=== PATIENT | male | born 1985 | race Caucasian/White ===

== ENCOUNTER 2021-01-25 19:07 | Emergency (ER) | payer SELFPAY ==
[~2021-01-25] VITALS: Ht 185.4 cm; Wt 104.5 kg
[2021-01-25 19:45] VITALS: BP 145/82
[2021-01-25] MEDS ORDERED: HYDROcodone/APAP 5/325MG 1 TAB TABLET PO ONE (20:45)
--- NOTE | 2021-01-25 21:26 | RAD ---
Exam: Right knee 2 views INDICATION: Pain after fall TECHNIQUE: Frontal and lateral views of the right knee Comparisons: None FINDINGS: Bone mineralization is normal. No acute or healed fractures. Soft tissues are unremarkable. Joint spa rohit are well-maintained. IMPRESSION: No acute osseous abnormality. Electronically signed by: Denys Knott MD (01/25/2021 9:23 PM) YO
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
[2021-01-25] MEDS ORDERED: HYDR-2761 PO (21:30)
[2021-01-25] MEDS ORDERED: IBUP-1007 PO (21:30)
== END 2021-01-25 21:35 | disposition home or self-care (01) ==
LOC: ER 19:07
DX: M25.561 Pain in right knee (principal)
CPT/HCPCS: 29505; 73560; 99283

== ENCOUNTER 2021-12-13 20:25 | Inpatient (IN) | payer SELFPAY ==
[~2021-12-13] VITALS: Ht 177.8 cm; Wt 96.3 kg
[~2021-12-13 20:25] MED LIST: HYDR-2761 PO; IBUP-1007 PO
[2021-12-13 20:30] VITALS: BP 163/95
[2021-12-13 21:00] VITALS: BP 168/96
[2021-12-13] MEDS ORDERED: MIDAZOLAM 100mg/100ml NS BAG 100 ML IV PRN (21:15)
[2021-12-13] MEDS ORDERED: IV NORMAL SALINE 500ML BAG 500 ML IV PRN (21:15)
[2021-12-13] MEDS ORDERED: POLYVINYL ALCOHOL 1.4% OPHTH SOLUTION 15ML BOTTLE. OU PRN (21:15)
[2021-12-13] MEDS ORDERED: ATROPINE 0.5 MG/5 ML DISP.SYRINGE. IV PRN (21:15)
[2021-12-13 22:00] VITALS: BP 156/89
[2021-12-13] MEDS: PROPOFOL 100 ML IV PRN (22:24)
[2021-12-13 23:00] VITALS: BP 137/79
[2021-12-14] VITALS (24 sets, daily range): BP systolic 118–164; BP diastolic 75–99
[2021-12-14] MEDS: PROPOFOL 100 ML IV PRN ×5 (01:08→20:19)
--- NOTE | 2021-12-14 06:08 | RAD ---
INDICATION: Reason: OG placement / Spl. Instructions: / History: COMPARISON: December 13, 2021 IMPRESSION: Abdomen: Single view obtained. Enteric tube is seen coursing below the diaphragm with the tip in the peripyloric region. Endotracheal tube is seen on this exam at mid thoracic trachea. Patchy opacities at the lung bases with blunting of the left costophrenic angle which could be secondary to edema or i nfiltrate with consolidation or small effusion at left lung base. Electronically signed by: Lawson Bararza MD (12/14/2021 6:05 AM) [id number]
[2021-12-14 07:38] LABS: BASE EXCESS ABG 1 mmol/L (-3-3); HCO3 ABG 25 mmol/L (21-28); PCO2 ABG 39 mmHg (35-46); PO2 ABG 92 mmHg (85-108); SAT O2 ABG 97 % (92-99)
[2021-12-14 09:15] LABS: BASO % 0 % (0-3); EOS % 0 % (0-3); HEMATOCRIT 42.1 % (39.0-53.0); HEMOGLOBIN 14.1 g/dL (13.0-17.5); LYMPH # 0.8 x10^3/uL (1.0-4.8); LYMPH % 7 % (24-48); MEAN CORPUSCULAR HEMOGLOBIN 29 pg (25-35); MEAN CORPUSCULAR HGB CONC 33 g/dL (31-37); MEAN CORPUSCULAR VOLUME 85 fL (79-100); MONO # 0.6 x10^3/uL (0.0-1.1); MONO % 5 % (0-9); NEUT % 88 % (31-73); PLATELET COUNT 216 x10^3/uL (140-400); RED BLOOD COUNT 4.93 x10^6/uL (4.30-5.70); RED CELL DISTRIBUTION WIDTH 13.7 % (11.5-14.5); WHITE BLOOD COUNT 11.4 x10^3/uL (4.0-11.0)
[2021-12-14] MEDS ORDERED: PIP/TAZO PER PHARMACY MC PRN (09:15)
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
[2021-12-14 09:41] LABS: ALBUMIN/GLOBULIN RATIO 0.8 (1.0-1.7); CALCIUM 7.9 mg/dL (8.5-10.1); CREATININE 1.2 mg/dL (0.7-1.3); GFR 68.1; MAGNESIUM 1.6 mg/dL (1.8-2.4); PHOSPHORUS 3.9 mg/dL (2.6-4.7); POTASSIUM 3.8 mmol/L (3.5-5.1)
[2021-12-14] MEDS ORDERED: MAGNESIUM SULFATE 4GM 100 ML IV ONE (10:00)
[2021-12-14] MEDS ORDERED: PIPERACILLIN/TAZOBACTAM 3.375 GM in IV NORMAL SALINE 50ML 50 ML IV ONE (10:00)
[2021-12-14 10:53] LABS: BARBITURATES NEG (NEG); BENZODIAZEPINES NEG (NEG); CANNABINOIDS NEG (NEG); COCAINE NEG (NEG); METHADONE NEG (NEG); OPIATES NEG (NEG); PHENCYCLIDINE NEG (NEG)
[2021-12-14 10:54] LABS: AMPHETAMINE/METHAMPHETAMINE POS (NEG)
[2021-12-14 10:59] LABS: BACTERIA,URINE 0 /HPF (0-FEW); RBC,URINE TNTC /HPF (0-2)
[2021-12-14] MEDS: ENOXAPARIN 40 MG/0.4 ML SYRINGE. SQ SCH (11:27)
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
[2021-12-14] MEDS: ACETAMINOPHEN 650 MG/20.3 ML SOLUTION. PEG PRN (17:04)
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
[2021-12-14] MEDS ORDERED: PIPERACILLIN/TAZOBACTAM 4.5 GM in IV NORMAL SALINE 100ML 100 ML IV SCH (18:00)
[2021-12-14] MEDS: PIPERACILLIN/TAZOBACTAM 4.5 GM in IV DEXTROSE 5% 100ML 100 ML IV SCH ×2 (18:15→23:37)
[2021-12-14] MEDS: FAMOTIDINE 20 MG/2 ML VIAL IVP SCH (20:52)
[2021-12-15] VITALS (24 sets, daily range): BP systolic 91–169; BP diastolic 58–98
[2021-12-15] MEDS: PROPOFOL 100 ML IV PRN ×5 (00:18→22:39)
[2021-12-15 05:23] LABS: HEMOGLOBIN 13.1 g/dL (13.0-17.5); RED BLOOD COUNT 4.53 x10^6/uL (4.30-5.70); RED CELL DISTRIBUTION WIDTH 13.3 % (11.5-14.5); WHITE BLOOD COUNT 10.2 x10^3/uL (4.0-11.0)
[2021-12-15 05:48] LABS: CALCIUM 8.4 mg/dL (8.5-10.1); CREATININE 0.8 mg/dL (0.7-1.3); GFR 108.8; MAGNESIUM 2.3 mg/dL (1.8-2.4); POTASSIUM 3.8 mmol/L (3.5-5.1)
[2021-12-15] MEDS: PIPERACILLIN/TAZOBACTAM 4.5 GM in IV DEXTROSE 5% 100ML 100 ML IV SCH ×4 (06:03→23:44)
[2021-12-15 07:54] LABS: BASE EXCESS ABG -2 mmol/L (-3-3); HCO3 ABG 22 mmol/L (21-28); PCO2 ABG 35 mmHg (35-46); PO2 ABG 129 mmHg (85-108); SAT O2 ABG 99 % (92-99)
[2021-12-15 07:55] LABS: FIO2 ABG 50% VENT
--- NOTE | 2021-12-15 09:08 | PDOC ---
PULMONARY PROGRESS NOTES DATE: 12/15/21 TIME: 09:05 Subjective Patient remains on assist control mode. Vitals Vital Signs Date Time Temp Pulse Resp B/P (MAP) Pulse Ox O2 Delivery O2 Flow Rate FiO2 12/15/21 08:14 100 Ventilator 12/15/21 08:00 97.9 87 22 150/92 (111) 97.9 Comments Remains intubated and sedated. Lungs: Clear Cardiovascular: S1 Abdomen: Soft Extremities: No Edema Skin: Warm Labs Laboratory Tests Test 12/14/21 07:36 12/14/21 08:55 12/14/21 10:34 12/15/21 04:45 O2 Saturation 97 % (92-99) Arterial Blood pH 7.42 (7.35-7.45) Arterial Blood pCO2 at Patient Temp 39 mmHg (35-46) Arterial Blood pO2 at Patient Temp 92 mmHg (85-108) Arterial Blood HCO3 25 mmol/L (21-28) Arterial Blood Base Excess 1 mmol/L (-3-3) FiO2 50% vent White Blood Count 11.4 x10^3/uL (4.0-11.0) 10.2 x10^3/uL (4.0-11.0) Red Blood Count 4.93 x10^6/uL (4.30-5.70) 4.53 x10^6/uL (4.30-5.70) Hemoglobin 14.1 g/dL (13.0-17.5) 13.1 g/dL (13.0-17.5) Hematocrit 42.1 % (39.0-53.0) 39.0 % (39.0-53.0) Mean Corpuscular Volume 85 fL (79-100) 86 fL (79-100) Mean Corpuscular Hemoglobin 29 pg (25-35) 29 pg (25-35) Mean Corpuscular Hemoglobin Concent 33 g/dL (31-37) 34 g/dL (31-37) Red Cell Distribution Width 13.7 % (11.5-14.5) 13.3 % (11.5-14.5) Platelet Count 216 x10^3/uL (140-400) 182 x10^3/uL (140-400) Neutrophils (%) (Auto) 88 % (31-73) Lymphocytes (%) (Auto) 7 % (24-48) Monocytes (%) (Auto) 5 % (0-9) Eosinophils (%) (Auto) 0 % (0-3) Basophils (%) (Auto) 0 % (0-3) Neutrophils # (Auto) 10.0 x10^3/uL (1.8-7.7) Lymphocytes # (Auto) 0.8 x10^3/uL (1.0-4.8) Monocytes # (Auto) 0.6 x10^3/uL (0.0-1.1) Eosinophils # (Auto) 0.0 x10^3/uL (0.0-0.7) Basophils # (Auto) 0.0 x10^3/uL (0.0-0.2) Sodium Level 146 mmol/L (136-145) 141 mmol/L (136-145) Potassium Level 3.8 mmol/L (3.5-5.1) 3.8 mmol/L (3.5-5.1) Chloride Level 111 mmol/L (98-107) 109 mmol/L (98-107) Carbon Dioxide Level 27 mmol/L (21-32) 23 mmol/L (21-32) Anion Gap 8 (6-14) 9 (6-14) Blood Urea Nitrogen 12 mg/dL (8-26) 12 mg/dL (8-26) Creatinine 1.2 mg/dL (0.7-1.3) 0.8 mg/dL (0.7-1.3) Estimated GFR (Cockcroft-Gault) 68.1 108.8 BUN/Creatinine Ratio 10 (6-20) Glucose Level 124 mg/dL (70-99) 100 mg/dL (70-99) Calcium Level 7.9 mg/dL (8.5-10.1) 8.4 mg/dL (8.5-10.1) Phosphorus Level 3.9 mg/dL (2.6-4.7) Magnesium Level 1.6 mg/dL (1.8-2.4) 2.3 mg/dL (1.8-2.4) Total Bilirubin 1.0 mg/dL (0.2-1.0) Aspartate Amino Transf (AST/SGOT) 18 U/L (15-37) Alanine Aminotransferase (ALT/SGPT) 29 U/L (16-63) Alkaline Phosphatase 57 U/L (46-116) Creatine Kinase 341 U/L (39-308) 139 U/L (39-308) Total Protein 7.0 g/dL (6.4-8.2) Albumin 3.0 g/dL (3.4-5.0) Albumin/Globulin Ratio 0.8 (1.0-1.7) Urine Collection Type Unknown Urine Color (Auto) Light orange Urine Turbidity Hazy Urine pH (Auto) 7.0 (<5.0-8.0) Urine Specific [place] 1.024 (1.000-1.030) Urine Protein (Auto) Negative mg/dL (Negative) Urine Glucose (Auto)(UA) Negative mg/dL (Negative) Urine Ketones (Auto) Negative mg/dL (Negative) Urine Blood (Auto) Large (Negative) Urine Nitrite Negative (Negative) Urine Bilirubin (Auto) Negative (Negative) Urine Urobilinogen (Auto) Normal mg/dL (Normal) Urine Leukocyte Esterase (Auto) Negative (Negative) Urine RBC Tntc /HPF (0-2) Urine WBC 1-4 /HPF (0-4) Urine Squamous Epithelial Cells Few /LPF Urine Bacteria 0 /HPF (0-FEW) Urine Mucus Mod /LPF Urine Opiates Screen Neg (NEG) Urine Methadone Screen Neg (NEG) Urine Barbiturates Neg (NEG) Urine Phencyclidine Screen Neg (NEG) Urine Amphetamine/Methamphetamine Pos (NEG) Urine Benzodiazepines Screen Neg (NEG) Urine Cocaine Screen Neg (NEG) Urine Cannabinoids Screen Neg (NEG) Urine Ethyl Alcohol Neg (NEG) Test 12/15/21 07:52 O2 Saturation 99 % (92-99) Arterial Blood pH 7.42 (7.35-7.45) Arterial Blood pCO2 at Patient Temp 35 mmHg (35-46) Arterial Blood pO2 at Patient Temp 129 mmHg (85-108) Arterial Blood HCO3 22 mmol/L (21-28) Arterial Blood Base Excess -2 mmol/L (-3-3) FiO2 50% vent Laboratory Tests Test 12/14/21 10:34 12/15/21 04:45 12/15/21 07:52 Urine Collection Type Unknown Urine Color (Auto) Light orange Urine Turbidity Hazy Urine pH (Auto) 7.0 (<5.0-8.0) Urine Specific [place] 1.024 (1.000-1.030) Urine Protein (Auto) Negative mg/dL (Negative) Urine Glucose (Auto)(UA) Negative mg/dL (Negative) Urine Ketones (Auto) Negative mg/dL (Negative) Urine Blood (Auto) Large (Negative) Urine Nitrite Negative (Negative) Urine Bilirubin (Auto) Negative (Negative) Urine Urobilinogen (Auto) Normal mg/dL (Normal) Urine Leukocyte Esterase (Auto) Negative (Negative) Urine RBC Tntc /HPF (0-2) Urine WBC 1-4 /HPF (0-4) Urine Squamous Epithelial Cells Few /LPF Urine Bacteria 0 /HPF (0-FEW) Urine Mucus Mod /LPF Urine Opiates Screen Neg (NEG) Urine Methadone Screen Neg (NEG) Urine Barbiturates Neg (NEG) Urine Phencyclidine Screen Neg (NEG) Urine Amphetamine/Methamphetamine Pos (NEG) Urine Benzodiazepines Screen Neg (NEG) Urine Cocaine Screen Neg (NEG) Urine Cannabinoids Screen Neg (NEG) Urine Ethyl Alcohol Neg (NEG) White Blood Count 10.2 x10^3/uL (4.0-11.0) Red Blood Count 4.53 x10^6/uL (4.30-5.70) Hemoglobin 13.1 g/dL (13.0-17.5) Hematocrit 39.0 % (39.0-53.0) Mean Corpuscular Volume 86 fL (79-100) Mean Corpuscular Hemoglobin 29 pg (25-35) Mean Corpuscular Hemoglobin Concent 34 g/dL (31-37) Red Cell Distribution Width 13.3 % (11.5-14.5) Platelet Count 182 x10^3/uL (140-400) Sodium Level 141 mmol/L (136-145) Potassium Level 3.8 mmol/L (3.5-5.1) Chloride Level 109 mmol/L (98-107) Carbon Dioxide Level 23 mmol/L (21-32) Anion Gap 9 (6-14) Blood Urea Nitrogen 12 mg/dL (8-26) Creatinine 0.8 mg/dL (0.7-1.3) Estimated GFR (Cockcroft-Gault) 108.8 Glucose Level 100 mg/dL (70-99) Calcium Level 8.4 mg/dL (8.5-10.1) Magnesium Level 2.3 mg/dL (1.8-2.4) Creatine Kinase 139 U/L (39-308) O2 Saturation 99 % (92-99) Arterial Blood pH 7.42 (7.35-7.45) Arterial Blood pCO2 at Patient Temp 35 mmHg (35-46) Arterial Blood pO2 at Patient Temp 129 mmHg (85-108) Arterial Blood HCO3 22 mmol/L (21-28) Arterial Blood Base Excess -2 mmol/L (-3-3) FiO2 50% vent Medications Active Scripts Medications Dose Route/Sig Max Daily Dose Days Date Category Hydrocodone-Apap 5-325 (Hydrocodone Bit/Acetaminophen) 1 Tab Tablet 1 Tab PO PRN Q6HRS PRN 01/25/21 Rx Ibuprofen 600 Mg Tablet 600 Mg PO PRN Q6HRS PRN 01/25/21 Rx Impression . 1. Acute hypoxic respiratory failure secondary to toxic encephalopathy and suspected suicidal attempt. Cannot exclude anoxic encephalopathy. 2. Acute toxic encephalopathy. Urine drug screen positive for meth. We will repeat the test.Cannot exclude anoxic encephalopathy. 3. Abnormal chest x-ray with right lung infiltrate along with fever. Suspect aspiration pneumonitis. Plan . RECOMMENDATIONS: 1. Discussed with RN and RT. We will continue with present assist control mode. I briefly discontinued propofol this morning. Patient did not respond to any commands. He became agitated and had restlessness. 2. Follow ABGs and make necessary adjustments. 3. exclude the possibility of anoxic encephalopathy. Neurology following. 4. Follow labs. 5. Follow chest x-ray. 6. Empiric antibiotic, Zosyn to cover for aspiration pneumonitis. 7. DVT and stress ulcer prophylaxis. 8. Chart reviewed, imaging studies reviewed. MILANA URBINA MD December 15, 2021 09:08
[2021-12-15] MEDS: ENOXAPARIN 40 MG/0.4 ML SYRINGE. SQ SCH (10:59)
[2021-12-15] MEDS: IV NORMAL SALINE 1000ML BAG 1,000 ML IV SCH ×2 (11:00→21:05)
--- NOTE | 2021-12-15 12:50 | PDOC ---
[facility] [facility] PROGRESS NOTE Date of Service DOS: DATE: 12/15/21 TIME: 12:49 Chief Complaint Chief Complaint Found down with probable overdose Respiratory failure requiring intubation Forehead hematoma Previous suicide attempt with baclofen and/or Flexeril, methamphetamine abuse. History of Present Illness History of Present Illness 12/15/2021 Patient seen and examined Discussed with RN (try to wake the patient up this morning but he did not do well he is back on propofol) Pupils are 2 mm minimally reactive Chart reviewed He is still on the vent AC/16/500/50 percent with 5 of PEEP Has mitts on for his safety Has IV Zosyn hanging He remains critically ill Vitals/I&O Vitals/I&O: Vital Signs Date Time Temp Pulse Resp B/P (MAP) Pulse Ox O2 Delivery O2 Flow Rate FiO2 12/15/21 12:33 100 Ventilator 12/15/21 12:00 97.4 92 20 136/78 (97) 97.4 I & O 12/14/21 12/14/21 12/15/21 15:00 23:00 07:00 Output Total 640 ml 470 ml 510 ml Balance -640 ml -470 ml -510 ml Physical Exam General: Other (Sedated with propofol) Heart: Regular rate Lungs: Clear Abdomen: Normal bowel sounds Extremities: No clubbing Skin: No rashes Labs Labs: Laboratory Tests Test 12/15/21 04:45 12/15/21 07:52 White Blood Count 10.2 x10^3/uL (4.0-11.0) Red Blood Count 4.53 x10^6/uL (4.30-5.70) Hemoglobin 13.1 g/dL (13.0-17.5) Hematocrit 39.0 % (39.0-53.0) Mean Corpuscular Volume 86 fL (79-100) Mean Corpuscular Hemoglobin 29 pg (25-35) Mean Corpuscular Hemoglobin Concent 34 g/dL (31-37) Red Cell Distribution Width 13.3 % (11.5-14.5) Platelet Count 182 x10^3/uL (140-400) Sodium Level 141 mmol/L (136-145) Potassium Level 3.8 mmol/L (3.5-5.1) Chloride Level 109 mmol/L (98-107) Carbon Dioxide Level 23 mmol/L (21-32) Anion Gap 9 (6-14) Blood Urea Nitrogen 12 mg/dL (8-26) Creatinine 0.8 mg/dL (0.7-1.3) Estimated GFR (Cockcroft-Gault) 108.8 Glucose Level 100 mg/dL (70-99) Calcium Level 8.4 mg/dL (8.5-10.1) Magnesium Level 2.3 mg/dL (1.8-2.4) Creatine Kinase 139 U/L (39-308) O2 Saturation 99 % (92-99) Arterial Blood pH 7.42 (7.35-7.45) Arterial Blood pCO2 at Patient Temp 35 mmHg (35-46) Arterial Blood pO2 at Patient Temp 129 mmHg (85-108) Arterial Blood HCO3 22 mmol/L (21-28) Arterial Blood Base Excess -2 mmol/L (-3-3) FiO2 50% vent Assessment and Plan Assessmemt and Plan Found down with probable overdose Respiratory failure requiring intubation Forehead hematoma Previous suicide attempt with baclofen and/or Flexeril, methamphetamine abuse. Plan ICU monitoring Vent weaning Trend labs Trend chest x-rays IV antibiotics DVT prophylaxis Full code Prognosis extremely guarded CC time 31 minutes Per pulmonary recommendations please see the following and we certainly agree and appreciate their input; 1. Acute hypoxic respiratory failure secondary to toxic encephalopathy and suspected suicidal attempt. Cannot exclude anoxic encephalopathy. 2. Acute toxic encephalopathy. Urine drug screen positive for meth. We will repeat the test.Cannot exclude anoxic encephalopathy. 3. Abnormal chest x-ray with right lung infiltrate along with fever. Suspect aspiration pneumonitis. Plan Plan . RECOMMENDATIONS: 1. Discussed with RN and RT. We will continue with present assist control mode. I briefly discontinued propofol this morning. Patient did not respond to any commands. He became agitated and had restlessness. 2. Follow ABGs and make necessary adjustments. 3. exclude the possibility of anoxic encephalopathy. Neurology following. 4. Follow labs. 5. Follow chest x-ray. 6. Empiric antibiotic, Zosyn to cover for aspiration pneumonitis. 7. DVT and stress ulcer prophylaxis. 8. Chart reviewed, imaging studies reviewed. Comment Review of Relevant I have reviewed the following items satish (where applicable) has been applied. Medications: Current Medications Medications (Trade) Dose Ordered Sig/Sumi Route PRN Reason Start Time Stop Time Status Last Admin Dose Admin Famotidine (Pepcid Vial) 20 mg QHS IVP 12/14/21 21:00 12/14/21 20:52 Piperacillin Sod/ Tazobactam Sod 4.5 gm/Dextrose 100 ml @ 200 mls/hr Q6HRS IV 12/14/21 18:00 12/15/21 11:00 Acetaminophen (Tylenol) 650 mg PRN Q6HRS PRN PEG MILD PAIN / TEMP > 100.3'F 12/14/21 17:00 12/14/21 17:04 Sodium Chloride 1,000 ml @ 125 mls/hr Q8H IV 12/15/21 11:00 12/15/21 11:00 Justifications for Admission Other Justification ROSA BEAN III DO December 15, 2021 12:50
--- NOTE | 2021-12-15 13:17 | PDOC ---
PROGRESS NOTES Date of Service DATE: 12/15/21 TIME: 13:14 Assessment Toxic encephalopathy, drug overdose, no evidence of ongoing seizure activity, intracranial process such as stroke or cerebral edema. Patient is gradually improving. Plan Continue current ICU supportive care Subjective None Objective Vital Signs Date Time Temp Pulse Resp B/P (MAP) Pulse Ox O2 Delivery O2 Flow Rate FiO2 12/15/21 12:33 100 Ventilator 12/15/21 12:00 97.4 92 20 136/78 (97) 97.4 Intake and Output 12/15/21 07:00 Output Total 1620 ml Balance -1620 ml Output Urine Total 1620 ml PHYSICAL EXAM Intubated and sedated, was very restless for the nurse when he stopped sedation earlier, Not cooperative with verbal commands PERRL. EOMI. CN: no focal findings. Muscle tone: normal. Muscle strength: Slight withdrawal to pain DTR: 1+ Plantar reflex: Silent Gait: not examined in bed. Sensory exam: no abnormal findings. Cerebellar: Not cooperative Review of Relevant I have reviewed the following items satish (where applicable) has been applied. Labs Laboratory Tests Test 12/14/21 07:36 12/14/21 08:55 12/14/21 10:34 12/15/21 04:45 O2 Saturation 97 % (92-99) Arterial Blood pH 7.42 (7.35-7.45) Arterial Blood pCO2 at Patient Temp 39 mmHg (35-46) Arterial Blood pO2 at Patient Temp 92 mmHg (85-108) Arterial Blood HCO3 25 mmol/L (21-28) Arterial Blood Base Excess 1 mmol/L (-3-3) FiO2 50% vent White Blood Count 11.4 x10^3/uL (4.0-11.0) 10.2 x10^3/uL (4.0-11.0) Red Blood Count 4.93 x10^6/uL (4.30-5.70) 4.53 x10^6/uL (4.30-5.70) Hemoglobin 14.1 g/dL (13.0-17.5) 13.1 g/dL (13.0-17.5) Hematocrit 42.1 % (39.0-53.0) 39.0 % (39.0-53.0) Mean Corpuscular Volume 85 fL (79-100) 86 fL (79-100) Mean Corpuscular Hemoglobin 29 pg (25-35) 29 pg (25-35) Mean Corpuscular Hemoglobin Concent 33 g/dL (31-37) 34 g/dL (31-37) Red Cell Distribution Width 13.7 % (11.5-14.5) 13.3 % (11.5-14.5) Platelet Count 216 x10^3/uL (140-400) 182 x10^3/uL (140-400) Neutrophils (%) (Auto) 88 % (31-73) Lymphocytes (%) (Auto) 7 % (24-48) Monocytes (%) (Auto) 5 % (0-9) Eosinophils (%) (Auto) 0 % (0-3) Basophils (%) (Auto) 0 % (0-3) Neutrophils # (Auto) 10.0 x10^3/uL (1.8-7.7) Lymphocytes # (Auto) 0.8 x10^3/uL (1.0-4.8) Monocytes # (Auto) 0.6 x10^3/uL (0.0-1.1) Eosinophils # (Auto) 0.0 x10^3/uL (0.0-0.7) Basophils # (Auto) 0.0 x10^3/uL (0.0-0.2) Sodium Level 146 mmol/L (136-145) 141 mmol/L (136-145) Potassium Level 3.8 mmol/L (3.5-5.1) 3.8 mmol/L (3.5-5.1) Chloride Level 111 mmol/L (98-107) 109 mmol/L (98-107) Carbon Dioxide Level 27 mmol/L (21-32) 23 mmol/L (21-32) Anion Gap 8 (6-14) 9 (6-14) Blood Urea Nitrogen 12 mg/dL (8-26) 12 mg/dL (8-26) Creatinine 1.2 mg/dL (0.7-1.3) 0.8 mg/dL (0.7-1.3) Estimated GFR (Cockcroft-Gault) 68.1 108.8 BUN/Creatinine Ratio 10 (6-20) Glucose Level 124 mg/dL (70-99) 100 mg/dL (70-99) Calcium Level 7.9 mg/dL (8.5-10.1) 8.4 mg/dL (8.5-10.1) Phosphorus Level 3.9 mg/dL (2.6-4.7) Magnesium Level 1.6 mg/dL (1.8-2.4) 2.3 mg/dL (1.8-2.4) Total Bilirubin 1.0 mg/dL (0.2-1.0) Aspartate Amino Transf (AST/SGOT) 18 U/L (15-37) Alanine Aminotransferase (ALT/SGPT) 29 U/L (16-63) Alkaline Phosphatase 57 U/L (46-116) Creatine Kinase 341 U/L (39-308) 139 U/L (39-308) Total Protein 7.0 g/dL (6.4-8.2) Albumin 3.0 g/dL (3.4-5.0) Albumin/Globulin Ratio 0.8 (1.0-1.7) Urine Collection Type Unknown Urine Color (Auto) Light orange Urine Turbidity Hazy Urine pH (Auto) 7.0 (<5.0-8.0) Urine Specific [place] 1.024 (1.000-1.030) Urine Protein (Auto) Negative mg/dL (Negative) Urine Glucose (Auto)(UA) Negative mg/dL (Negative) Urine Ketones (Auto) Negative mg/dL (Negative) Urine Blood (Auto) Large (Negative) Urine Nitrite Negative (Negative) Urine Bilirubin (Auto) Negative (Negative) Urine Urobilinogen (Auto) Normal mg/dL (Normal) Urine Leukocyte Esterase (Auto) Negative (Negative) Urine RBC Tntc /HPF (0-2) Urine WBC 1-4 /HPF (0-4) Urine Squamous Epithelial Cells Few /LPF Urine Bacteria 0 /HPF (0-FEW) Urine Mucus Mod /LPF Urine Opiates Screen Neg (NEG) Urine Methadone Screen Neg (NEG) Urine Barbiturates Neg (NEG) Urine Phencyclidine Screen Neg (NEG) Urine Amphetamine/Methamphetamine Pos (NEG) Urine Benzodiazepines Screen Neg (NEG) Urine Cocaine Screen Neg (NEG) Urine Cannabinoids Screen Neg (NEG) Urine Ethyl Alcohol Neg (NEG) Test 12/15/21 07:52 O2 Saturation 99 % (92-99) Arterial Blood pH 7.42 (7.35-7.45) Arterial Blood pCO2 at Patient Temp 35 mmHg (35-46) Arterial Blood pO2 at Patient Temp 129 mmHg (85-108) Arterial Blood HCO3 22 mmol/L (21-28) Arterial Blood Base Excess -2 mmol/L (-3-3) FiO2 50% vent Laboratory Tests Test 12/15/21 04:45 12/15/21 07:52 White Blood Count 10.2 x10^3/uL (4.0-11.0) Red Blood Count 4.53 x10^6/uL (4.30-5.70) Hemoglobin 13.1 g/dL (13.0-17.5) Hematocrit 39.0 % (39.0-53.0) Mean Corpuscular Volume 86 fL (79-100) Mean Corpuscular Hemoglobin 29 pg (25-35) Mean Corpuscular Hemoglobin Concent 34 g/dL (31-37) Red Cell Distribution Width 13.3 % (11.5-14.5) Platelet Count 182 x10^3/uL (140-400) Sodium Level 141 mmol/L (136-145) Potassium Level 3.8 mmol/L (3.5-5.1) Chloride Level 109 mmol/L (98-107) Carbon Dioxide Level 23 mmol/L (21-32) Anion Gap 9 (6-14) Blood Urea Nitrogen 12 mg/dL (8-26) Creatinine 0.8 mg/dL (0.7-1.3) Estimated GFR (Cockcroft-Gault) 108.8 Glucose Level 100 mg/dL (70-99) Calcium Level 8.4 mg/dL (8.5-10.1) Magnesium Level 2.3 mg/dL (1.8-2.4) Creatine Kinase 139 U/L (39-308) O2 Saturation 99 % (92-99) Arterial Blood pH 7.42 (7.35-7.45) Arterial Blood pCO2 at Patient Temp 35 mmHg (35-46) Arterial Blood pO2 at Patient Temp 129 mmHg (85-108) Arterial Blood HCO3 22 mmol/L (21-28) Arterial Blood Base Excess -2 mmol/L (-3-3) FiO2 50% vent Medications Current Medications Fentanyl Citrate 30 ml @ 2.5 mls/hr CONT PRN IV SEE PROTOCOL; Start 12/13/21 at 21:15 Midazolam HCl 100 ml @ 1 mls/hr CONT PRN IV SEE PROTOCOL; Start 12/13/21 at 21:15; Stop 12/15/21 at 11:13; Status DC Propofol 100 ml @ 2.901 mls/ hr CONT PRN IV PER PROTOCOL Last administered on 12/15/21at 09:46; Start 12/13/21 at 21:15 Glycerin/ Hypromellose/ Polyethylene (Artificial Tears) 1 drop PRN Q1HR PRN OU DRY EYE; Start 12/13/21 at 21:15 Dexmedetomidine HCl 400 mcg/ Sodium Chloride 100 ml @ 4.835 mls/ hr CONT PRN IV PER PROTOCOL; Start 12/13/21 at 21:15 Sodium Chloride 500 ml @ 500 mls/hr 1X PRN PRN IV SEE COMMENTS; Start 12/13/21 at 21:15 Atropine Sulfate (ATROPINE 0.5mg SYRINGE) 0.5 mg PRN Q5MIN PRN IV SEE COMMENTS; Start 12/13/21 at 21:15 Piperacillin Sod/ Tazobactam Sod (Zosyn Per Pharmacy) 1 each PRN DAILY PRN MC SEE COMMENTS; Start 12/14/21 at 09:15 Enoxaparin Sodium (Lovenox 40mg Syringe) 40 mg Q24H SQ Last administered on 12/15/21at 10:59; Start 12/14/21 at 11:00 Famotidine (Pepcid Vial) 20 mg QHS IVP Last administered on 12/14/21at 20:52; Start 12/14/21 at 21:00 Piperacillin Sod/ Tazobactam Sod 3.375 gm/Sodium Chloride 50 ml @ 100 mls/hr 1X ONCE IV Last administered on 12/14/21at 09:37; Start 12/14/21 at 10:00; Stop 12/14/21 at 10:29; Status DC Magnesium Sulfate 100 ml @ 25 mls/hr 1X ONCE IV Last administered on 12/14/21at 10:23; Start 12/14/21 at 10:00; Stop 12/14/21 at 13:59; Status DC Piperacillin Sod/ Tazobactam Sod 4.5 gm/Sodium Chloride 100 ml @ 200 mls/hr Q6HRS IV ; Start 12/14/21 at 18:00; Stop 12/14/21 at 10:22; Status DC Piperacillin Sod/ Tazobactam Sod 4.5 gm/Dextrose 100 ml @ 200 mls/hr Q6HRS IV Last administered on 12/15/21at 11:00; Start 12/14/21 at 18:00 Acetaminophen (Tylenol) 650 mg PRN Q6HRS PRN PEG MILD PAIN / TEMP > 100.3'F Last administered on 12/14/21at 17:04; Start 12/14/21 at 17:00 Sodium Chloride 1,000 ml @ 125 mls/hr Q8H IV Last administered on 12/15/21at 11:00; Start 12/15/21 at 11:00 Active Scripts Active Hydrocodone-Apap 5-325 (Hydrocodone Bit/Acetaminophen) 1 Tab Tablet 1 Tab PO PRN Q6HRS PRN Ibuprofen 600 Mg Tablet 600 Mg PO PRN Q6HRS PRN Vitals/I & O Vital Sign - Last 24 Hours 12/14/21 12/14/21 12/14/21 12/14/21 14:00 15:00 15:37 16:00 Temp 100.1 100.1 Pulse 109 112 101 Resp 20 20 22 B/P (MAP) 152/90 (110) 154/93 (113) 155/91 (112) Pulse Ox 100 100 100 100 O2 Delivery Ventilator Ventilator Ventilator Ventilator 12/14/21 12/14/21 12/14/21 12/14/21 16:00 17:00 17:19 18:00 Pulse 108 99 Resp 24 20 B/P (MAP) 164/96 (118) 134/91 (105) Pulse Ox 100 99 100 O2 Delivery Mechanical Ventilator Ventilator Ventilator Ventilator 12/14/21 12/14/21 12/14/21 12/14/21 19:00 19:55 20:00 20:00 Temp 99.4 99.4 Pulse 101 90 Resp 16 16 B/P (MAP) 133/83 (100) 140/86 (104) Pulse Ox 100 100 100 O2 Delivery Ventilator Ventilator Mechanical Ventilator Ventilator 12/14/21 12/14/21 12/14/21 12/14/21 21:00 22:00 23:00 23:28 Pulse 96 94 108 Resp 16 16 16 B/P (MAP) 138/78 (98) 146/89 (108) 141/90 (107) Pulse Ox 100 100 100 100 O2 Delivery Ventilator Ventilator Ventilator Ventilator 12/15/21 12/15/21 12/15/21 12/15/21 00:00 00:00 01:00 01:41 Temp 99.5 99.5 Pulse 92 93 Resp 16 16 B/P (MAP) 148/87 (107) 144/78 (100) Pulse Ox 100 100 100 O2 Delivery Mechanical Ventilator Ventilator Ventilator Ventilator 12/15/21 12/15/21 12/15/21 12/15/21 02:00 03:00 03:28 04:00 Temp 99.7 99.7 Pulse 90 104 103 Resp 16 16 16 B/P (MAP) 137/92 (107) 149/84 (105) 160/90 (113) Pulse Ox 100 100 100 100 O2 Delivery Ventilator Ventilator Ventilator Ventilator 12/15/21 12/15/21 12/15/21 12/15/21 04:00 05:00 05:32 06:00 Pulse 76 99 Resp 18 18 B/P (MAP) 147/83 (104) 156/88 (110) Pulse Ox 100 100 100 O2 Delivery Mechanical Ventilator Ventilator Ventilator Ventilator 12/15/21 12/15/21 12/15/21 12/15/21 07:00 07:47 07:58 08:00 Temp 97.9 97.9 Pulse 99 87 Resp 20 22 B/P (MAP) 140/92 (108) 150/92 (111) Pulse Ox 100 100 100 O2 Delivery Ventilator Ventilator Mechanical Ventilator Ventilator 12/15/21 12/15/21 12/15/21 12/15/21 08:14 09:00 10:00 10:52 Pulse 99 88 Resp 22 B/P (MAP) 131/78 (95) 147/78 (101) Pulse Ox 100 100 100 100 O2 Delivery Ventilator Ventilator Ventilator Ventilator 12/15/21 12/15/21 12/15/21 12/15/21 11:00 12:00 12:00 12:33 Temp 97.4 97.4 Pulse 90 92 Resp 20 20 B/P (MAP) 132/85 (101) 136/78 (97) Pulse Ox 100 100 100 O2 Delivery Ventilator Mechanical Ventilator Ventilator Ventilator Intake and Output 12/14/21 12/14/21 12/15/21 15:00 23:00 07:00 Output Total 640 ml 470 ml 510 ml Balance -640 ml -470 ml -510 ml Justicifation of Admission Dx: Justifications for Admission: Justification of Admission Dx: N/A DOMINICK TORRES MD December 15, 2021 13:17
[2021-12-15] MEDS: DEXMEDETOMIDINE 400 MCG in IV NORMAL SALINE 100ML 96 ML IV PRN ×2 (15:54→23:45)
[2021-12-15] MEDS: FAMOTIDINE 20 MG/2 ML VIAL IVP SCH (21:05)
[2021-12-16] VITALS (23 sets, daily range): BP systolic 88–133; BP diastolic 47–88
[2021-12-16] MEDS: PROPOFOL 100 ML IV PRN ×6 (03:58→23:31)
[2021-12-16] MEDS: IV NORMAL SALINE 1000ML BAG 1,000 ML IV SCH ×3 (05:31→20:50)
[2021-12-16] MEDS: PIPERACILLIN/TAZOBACTAM 4.5 GM in IV DEXTROSE 5% 100ML 100 ML IV SCH ×4 (05:31→23:31)
--- NOTE | 2021-12-16 08:28 | RAD ---
AP portable chest radiograph 12/16/2021 Clinical History: Aspiration pneumonia. Respiratory failure. An AP semi erect portable digital radiograph of the chest was obtained. Comparison study is dated 12/13/2021. The ET tube is unchanged in position. An NG tube has been placed. The tip of this tube is off this ra diograph in the region of the distal body/antrum of the stomach. The cardiac and mediastinal silhouet balbina are within normal limits in size and configuration. Increasing left lower lobe atelectasis and/or infiltrate is noted. Right lower lobe atelectasis and/or infiltrate has improved. No pneumothorax or pleural effusion is noted. The osseous structures are unchanged. Impression: 1. .Increasing left lower lobe atelectasis and/or infiltrate. 2. Improving right lower lobe atelectasis and/or infiltrate Electronically signed by: Won Peña MD (12/16/2021 8:26 AM) [id number]
[2021-12-16 08:33] LABS: BASE EXCESS ABG -3 mmol/L (-3-3); HCO3 ABG 21 mmol/L (21-28); PCO2 ABG 34 mmHg (35-46); PO2 ABG 167 mmHg (85-108); SAT O2 ABG 99 % (92-99)
--- NOTE | 2021-12-16 08:33 | PDOC ---
PROGRESS NOTES Date of Service DATE: 12/16/21 TIME: 08:32 Assessment Toxic encephalopathy, drug overdose, no evidence of ongoing seizure activity, intracranial process such as stroke or cerebral edema. Patient is gradually improving. Plan Continue current ICU supportive care Subjective None Objective Vital Signs Date Time Temp Pulse Resp B/P (MAP) Pulse Ox O2 Delivery O2 Flow Rate FiO2 12/16/21 08:13 100 Ventilator 12/16/21 07:00 98.6 83 19 100/59 98.6 Intake and Output 12/16/21 07:00 Intake Total 4059 ml Output Total 1740 ml Balance 2319 ml Intake IV Total 4059 ml Output Urine Total 1740 ml PHYSICAL EXAM Intubated and sedated, off sedation he remains agitated and not following commands PERRL. EOMI. CN: no focal findings. Muscle tone: normal. Muscle strength: Slight withdrawal to pain DTR: 1+ Plantar reflex: Silent Gait: not examined in bed. Sensory exam: no abnormal findings. Cerebellar: Not cooperative Review of Relevant I have reviewed the following items satish (where applicable) has been applied. Labs Laboratory Tests Test 12/14/21 08:55 12/14/21 10:34 12/15/21 04:45 12/15/21 07:52 White Blood Count 11.4 x10^3/uL (4.0-11.0) 10.2 x10^3/uL (4.0-11.0) Red Blood Count 4.93 x10^6/uL (4.30-5.70) 4.53 x10^6/uL (4.30-5.70) Hemoglobin 14.1 g/dL (13.0-17.5) 13.1 g/dL (13.0-17.5) Hematocrit 42.1 % (39.0-53.0) 39.0 % (39.0-53.0) Mean Corpuscular Volume 85 fL (79-100) 86 fL (79-100) Mean Corpuscular Hemoglobin 29 pg (25-35) 29 pg (25-35) Mean Corpuscular Hemoglobin Concent 33 g/dL (31-37) 34 g/dL (31-37) Red Cell Distribution Width 13.7 % (11.5-14.5) 13.3 % (11.5-14.5) Platelet Count 216 x10^3/uL (140-400) 182 x10^3/uL (140-400) Neutrophils (%) (Auto) 88 % (31-73) Lymphocytes (%) (Auto) 7 % (24-48) Monocytes (%) (Auto) 5 % (0-9) Eosinophils (%) (Auto) 0 % (0-3) Basophils (%) (Auto) 0 % (0-3) Neutrophils # (Auto) 10.0 x10^3/uL (1.8-7.7) Lymphocytes # (Auto) 0.8 x10^3/uL (1.0-4.8) Monocytes # (Auto) 0.6 x10^3/uL (0.0-1.1) Eosinophils # (Auto) 0.0 x10^3/uL (0.0-0.7) Basophils # (Auto) 0.0 x10^3/uL (0.0-0.2) Sodium Level 146 mmol/L (136-145) 141 mmol/L (136-145) Potassium Level 3.8 mmol/L (3.5-5.1) 3.8 mmol/L (3.5-5.1) Chloride Level 111 mmol/L (98-107) 109 mmol/L (98-107) Carbon Dioxide Level 27 mmol/L (21-32) 23 mmol/L (21-32) Anion Gap 8 (6-14) 9 (6-14) Blood Urea Nitrogen 12 mg/dL (8-26) 12 mg/dL (8-26) Creatinine 1.2 mg/dL (0.7-1.3) 0.8 mg/dL (0.7-1.3) Estimated GFR (Cockcroft-Gault) 68.1 108.8 BUN/Creatinine Ratio 10 (6-20) Glucose Level 124 mg/dL (70-99) 100 mg/dL (70-99) Calcium Level 7.9 mg/dL (8.5-10.1) 8.4 mg/dL (8.5-10.1) Phosphorus Level 3.9 mg/dL (2.6-4.7) Magnesium Level 1.6 mg/dL (1.8-2.4) 2.3 mg/dL (1.8-2.4) Total Bilirubin 1.0 mg/dL (0.2-1.0) Aspartate Amino Transf (AST/SGOT) 18 U/L (15-37) Alanine Aminotransferase (ALT/SGPT) 29 U/L (16-63) Alkaline Phosphatase 57 U/L (46-116) Creatine Kinase 341 U/L (39-308) 139 U/L (39-308) Total Protein 7.0 g/dL (6.4-8.2) Albumin 3.0 g/dL (3.4-5.0) Albumin/Globulin Ratio 0.8 (1.0-1.7) Urine Collection Type Unknown Urine Color (Auto) Light orange Urine Turbidity Hazy Urine pH (Auto) 7.0 (<5.0-8.0) Urine Specific [place] 1.024 (1.000-1.030) Urine Protein (Auto) Negative mg/dL (Negative) Urine Glucose (Auto)(UA) Negative mg/dL (Negative) Urine Ketones (Auto) Negative mg/dL (Negative) Urine Blood (Auto) Large (Negative) Urine Nitrite Negative (Negative) Urine Bilirubin (Auto) Negative (Negative) Urine Urobilinogen (Auto) Normal mg/dL (Normal) Urine Leukocyte Esterase (Auto) Negative (Negative) Urine RBC Tntc /HPF (0-2) Urine WBC 1-4 /HPF (0-4) Urine Squamous Epithelial Cells Few /LPF Urine Bacteria 0 /HPF (0-FEW) Urine Mucus Mod /LPF Urine Opiates Screen Neg (NEG) Urine Methadone Screen Neg (NEG) Urine Barbiturates Neg (NEG) Urine Phencyclidine Screen Neg (NEG) Urine Amphetamine/Methamphetamine Pos (NEG) Urine Benzodiazepines Screen Neg (NEG) Urine Cocaine Screen Neg (NEG) Urine Cannabinoids Screen Neg (NEG) Urine Ethyl Alcohol Neg (NEG) O2 Saturation 99 % (92-99) Arterial Blood pH 7.42 (7.35-7.45) Arterial Blood pCO2 at Patient Temp 35 mmHg (35-46) Arterial Blood pO2 at Patient Temp 129 mmHg (85-108) Arterial Blood HCO3 22 mmol/L (21-28) Arterial Blood Base Excess -2 mmol/L (-3-3) FiO2 50% vent Medications Current Medications Fentanyl Citrate 30 ml @ 2.5 mls/hr CONT PRN IV SEE PROTOCOL; Start 12/13/21 at 21:15 Midazolam HCl 100 ml @ 1 mls/hr CONT PRN IV SEE PROTOCOL; Start 12/13/21 at 21:15; Stop 12/15/21 at 11:13; Status DC Propofol 100 ml @ 2.901 mls/ hr CONT PRN IV PER PROTOCOL Last administered on 12/16/21at 07:52; Start 12/13/21 at 21:15 Glycerin/ Hypromellose/ Polyethylene (Artificial Tears) 1 drop PRN Q1HR PRN OU DRY EYE; Start 12/13/21 at 21:15 Dexmedetomidine HCl 400 mcg/ Sodium Chloride 100 ml @ 4.835 mls/ hr CONT PRN IV PER PROTOCOL Last administered on 12/15/21at 23:45; Start 12/13/21 at 21:15 Sodium Chloride 500 ml @ 500 mls/hr 1X PRN PRN IV SEE COMMENTS; Start 12/13/21 at 21:15 Atropine Sulfate (ATROPINE 0.5mg SYRINGE) 0.5 mg PRN Q5MIN PRN IV SEE COMMENTS; Start 12/13/21 at 21:15 Piperacillin Sod/ Tazobactam Sod (Zosyn Per Pharmacy) 1 each PRN DAILY PRN MC SEE COMMENTS; Start 12/14/21 at 09:15 Enoxaparin Sodium (Lovenox 40mg Syringe) 40 mg Q24H SQ Last administered on 12/15/21at 10:59; Start 12/14/21 at 11:00 Famotidine (Pepcid Vial) 20 mg QHS IVP Last administered on 12/15/21at 21:05; Start 12/14/21 at 21:00 Piperacillin Sod/ Tazobactam Sod 3.375 gm/Sodium Chloride 50 ml @ 100 mls/hr 1X ONCE IV Last administered on 12/14/21at 09:37; Start 12/14/21 at 10:00; Stop 12/14/21 at 10:29; Status DC Magnesium Sulfate 100 ml @ 25 mls/hr 1X ONCE IV Last administered on 12/14/21at 10:23; Start 12/14/21 at 10:00; Stop 12/14/21 at 13:59; Status DC Piperacillin Sod/ Tazobactam Sod 4.5 gm/Sodium Chloride 100 ml @ 200 mls/hr Q6HRS IV ; Start 12/14/21 at 18:00; Stop 12/14/21 at 10:22; Status DC Piperacillin Sod/ Tazobactam Sod 4.5 gm/Dextrose 100 ml @ 200 mls/hr Q6HRS IV Last administered on 12/16/21at 05:31; Start 12/14/21 at 18:00 Acetaminophen (Tylenol) 650 mg PRN Q6HRS PRN PEG MILD PAIN / TEMP > 100.3'F Last administered on 12/14/21at 17:04; Start 12/14/21 at 17:00 Sodium Chloride 1,000 ml @ 125 mls/hr Q8H IV Last administered on 12/16/21at 05:31; Start 12/15/21 at 11:00 Active Scripts Active Hydrocodone-Apap 5-325 (Hydrocodone Bit/Acetaminophen) 1 Tab Tablet 1 Tab PO PRN Q6HRS PRN Ibuprofen 600 Mg Tablet 600 Mg PO PRN Q6HRS PRN Vitals/I & O Vital Sign - Last 24 Hours 12/15/21 12/15/21 12/15/21 12/15/21 09:00 10:00 10:52 11:00 Pulse 99 88 90 Resp 20 22 20 B/P (MAP) 131/78 (95) 147/78 (101) 132/85 (101) Pulse Ox 100 100 100 100 O2 Delivery Ventilator Ventilator Ventilator Ventilator 12/15/21 12/15/21 12/15/21 12/15/21 12:00 12:00 12:33 13:00 Temp 97.4 97.4 Pulse 92 99 Resp 20 20 B/P (MAP) 136/78 (97) 151/89 (109) Pulse Ox 100 100 100 O2 Delivery Mechanical Ventilator Ventilator Ventilator Ventilator 12/15/21 12/15/21 12/15/21 12/15/21 14:00 14:51 15:00 16:07 Temp 97.5 97.5 Pulse 105 118 91 Resp 18 18 20 B/P (MAP) 156/95 (115) 169/98 (121) 139/89 Pulse Ox 100 100 100 100 O2 Delivery Ventilator Ventilator Ventilator Ventilator 12/15/21 12/15/21 12/15/21 12/15/21 16:11 16:43 17:00 18:00 Pulse 87 84 Resp 20 20 B/P (MAP) 128/80 109/65 Pulse Ox 100 100 100 O2 Delivery Mechanical Ventilator Ventilator Ventilator Ventilator 12/15/21 12/15/21 12/15/21 12/15/21 19:00 20:00 20:00 20:12 Temp 98.6 98.6 Pulse 80 82 Resp 20 20 B/P (MAP) 91/59 95/58 Pulse Ox 100 100 100 O2 Delivery Ventilator Ventilator Mechanical Ventilator Ventilator 12/15/21 12/15/21 12/15/21 12/15/21 21:00 22:00 23:00 23:48 Pulse 90 86 86 Resp 20 20 20 B/P (MAP) 108/68 98/60 102/61 Pulse Ox 100 100 100 100 O2 Delivery Ventilator Ventilator Ventilator Ventilator 12/16/21 12/16/21 12/16/21 12/16/21 00:00 00:00 01:00 01:48 Temp 98.9 98.9 Pulse 90 88 Resp 21 B/P (MAP) 107/63 101/61 Pulse Ox 100 100 100 O2 Delivery Mechanical Ventilator Ventilator Ventilator Ventilator 12/16/21 12/16/21 12/16/21 12/16/21 02:00 03:00 03:34 04:00 Temp 98.7 98.7 Pulse 84 96 91 Resp 20 21 B/P (MAP) 98/48 123/78 115/88 Pulse Ox 100 100 100 100 O2 Delivery Ventilator Ventilator Ventilator Ventilator 12/16/21 12/16/21 12/16/21 12/16/21 04:00 05:00 05:34 06:00 Pulse 82 80 Resp 19 19 B/P (MAP) 88/47 90/49 Pulse Ox 100 100 100 O2 Delivery Mechanical Ventilator Ventilator Ventilator Ventilator 12/16/21 12/16/21 07:00 08:13 Temp 98.6 98.6 Pulse 83 Resp 19 B/P (MAP) 100/59 Pulse Ox 100 100 O2 Delivery Ventilator Ventilator Intake and Output 12/15/21 12/15/21 12/16/21 15:00 23:00 07:00 Intake Total 2308 ml 1751 ml Output Total 430 ml 995 ml 315 ml Balance -430 ml 1313 ml 1436 ml Justicifation of Admission Dx: Justifications for Admission: Justification of Admission Dx: N/A DOMINICK TORRES MD December 16, 2021 08:33
[2021-12-16 08:36] LABS: FIO2 ABG 50
[2021-12-16] MEDS ORDERED: MIDAZOLAM HCL/PF 5 MG/5 ML VIAL. ONE ×2 (08:37→08:45)
[2021-12-16] MEDS ORDERED: MIDAZOLAM HCL/PF 5 MG/5 ML VIAL. IVP ONE (08:45)
--- NOTE | 2021-12-16 10:34 | PDOC ---
[employer] PROGRESS NOTE Date of Service DOS: DATE: 12/16/21 TIME: 10:33 Chief Complaint Chief Complaint Found down with probable overdose Respiratory failure requiring intubation Forehead hematoma Previous suicide attempt with baclofen and/or Flexeril, methamphetamine abuse. History of Present Illness History of Present Illness 12/16/2021 Patient seen and examined in the ICU He remains on the ventilator AC/16/500/50 with 5 of PEEP Discussed with RN Discussed with case management Chart reviewed We tried to wake him up yesterday and this morning but he gets too agitated Pupils 2 mm and symmetrical He remains critically 12/15/2021 Patient seen and examined Discussed with RN (try to wake the patient up this morning but he did not do well he is back on propofol) Pupils are 2 mm minimally reactive Chart reviewed He is still on the vent AC/16/500/50 percent with 5 of PEEP Has mitts on for his safety Has IV Zosyn hanging He remains critically ill Vitals/I&O Vitals/I&O: Vital Signs Date Time Temp Pulse Resp B/P (MAP) Pulse Ox O2 Delivery O2 Flow Rate FiO2 12/16/21 10:00 78 19 97/51 100 Ventilator 12/16/21 07:00 98.6 98.6 I & O 12/15/21 12/15/21 12/16/21 15:00 23:00 07:00 Intake Total 2308 ml 1751 ml Output Total 430 ml 995 ml 315 ml Balance -430 ml 1313 ml 1436 ml Physical Exam General: Other (Sedated with propofol) Heart: Regular rate Lungs: Clear Abdomen: Normal bowel sounds Extremities: No clubbing Skin: No rashes Labs Labs: Laboratory Tests Test 12/16/21 08:00 O2 Saturation 99 % (92-99) Arterial Blood pH 7.41 (7.35-7.45) Arterial Blood pCO2 at Patient Temp 34 mmHg (35-46) Arterial Blood pO2 at Patient Temp 167 mmHg (85-108) Arterial Blood HCO3 21 mmol/L (21-28) Arterial Blood Base Excess -3 mmol/L (-3-3) FiO2 50 Assessment and Plan Assessmemt and Plan Found down with probable overdose Respiratory failure requiring intubation Forehead hematoma Previous suicide attempt with baclofen and/or Flexeril, methamphetamine abuse. Plan ICU monitoring Vent weaning Trend labs Trend chest x-rays IV antibiotics DVT prophylaxis Full code Prognosis extremely guarded Appreciate subspecialist input CC time 32 minutes Comment Review of Relevant I have reviewed the following items satish (where applicable) has been applied. Medications: Current Medications Medications (Trade) Dose Ordered Sig/Sumi Route PRN Reason Start Time Stop Time Status Last Admin Dose Admin Sodium Chloride 1,000 ml @ 125 mls/hr Q8H IV 12/15/21 11:00 12/16/21 05:31 Justifications for Admission Other Justification ROSA BEAN III DO December 16, 2021 10:34
[2021-12-16] MEDS: ENOXAPARIN 40 MG/0.4 ML SYRINGE. SQ SCH (10:46)
--- NOTE | 2021-12-16 11:19 | PDOC ---
PULMONARY PROGRESS NOTES DATE: 12/16/21 TIME: 11:17 Subjective Patient remains on assist control mode. Patient became severely agitated. Precedex had to be added in addition to propofol. Patient did not follow any commands. Vitals Vital Signs Date Time Temp Pulse Resp B/P (MAP) Pulse Ox O2 Delivery O2 Flow Rate FiO2 12/16/21 10:00 78 19 97/51 100 Ventilator 12/16/21 07:00 98.6 98.6 Comments Remains intubated and sedated. Lungs: Clear Cardiovascular: S1 Abdomen: Soft Extremities: No Edema Skin: Warm Labs Laboratory Tests Test 12/15/21 04:45 12/15/21 07:52 12/16/21 08:00 White Blood Count 10.2 x10^3/uL (4.0-11.0) Red Blood Count 4.53 x10^6/uL (4.30-5.70) Hemoglobin 13.1 g/dL (13.0-17.5) Hematocrit 39.0 % (39.0-53.0) Mean Corpuscular Volume 86 fL (79-100) Mean Corpuscular Hemoglobin 29 pg (25-35) Mean Corpuscular Hemoglobin Concent 34 g/dL (31-37) Red Cell Distribution Width 13.3 % (11.5-14.5) Platelet Count 182 x10^3/uL (140-400) Sodium Level 141 mmol/L (136-145) Potassium Level 3.8 mmol/L (3.5-5.1) Chloride Level 109 mmol/L (98-107) Carbon Dioxide Level 23 mmol/L (21-32) Anion Gap 9 (6-14) Blood Urea Nitrogen 12 mg/dL (8-26) Creatinine 0.8 mg/dL (0.7-1.3) Estimated GFR (Cockcroft-Gault) 108.8 Glucose Level 100 mg/dL (70-99) Calcium Level 8.4 mg/dL (8.5-10.1) Magnesium Level 2.3 mg/dL (1.8-2.4) Creatine Kinase 139 U/L (39-308) O2 Saturation 99 % (92-99) 99 % (92-99) Arterial Blood pH 7.42 (7.35-7.45) 7.41 (7.35-7.45) Arterial Blood pCO2 at Patient Temp 35 mmHg (35-46) 34 mmHg (35-46) Arterial Blood pO2 at Patient Temp 129 mmHg (85-108) 167 mmHg (85-108) Arterial Blood HCO3 22 mmol/L (21-28) 21 mmol/L (21-28) Arterial Blood Base Excess -2 mmol/L (-3-3) -3 mmol/L (-3-3) FiO2 50% vent 50 Laboratory Tests Test 12/16/21 08:00 O2 Saturation 99 % (92-99) Arterial Blood pH 7.41 (7.35-7.45) Arterial Blood pCO2 at Patient Temp 34 mmHg (35-46) Arterial Blood pO2 at Patient Temp 167 mmHg (85-108) Arterial Blood HCO3 21 mmol/L (21-28) Arterial Blood Base Excess -3 mmol/L (-3-3) FiO2 50 Medications Active Scripts Medications Dose Route/Sig Max Daily Dose Days Date Category Hydrocodone-Apap 5-325 (Hydrocodone Bit/Acetaminophen) 1 Tab Tablet 1 Tab PO PRN Q6HRS PRN 01/25/21 Rx Ibuprofen 600 Mg Tablet 600 Mg PO PRN Q6HRS PRN 01/25/21 Rx Comments Chest x-ray reviewed 12/16/2021. Improving right basal infiltrate and slightly increased left basal infiltrate. Impression . 1. Acute hypoxic respiratory failure secondary to toxic encephalopathy and suspected suicidal attempt. Cannot exclude anoxic encephalopathy. 2. Acute toxic encephalopathy. Urine drug screen positive for meth. We will repeat the test.Cannot exclude anoxic encephalopathy. 3. Abnormal chest x-ray with right lung infiltrate along with fever. Suspect aspiration pneumonitis. Plan . RECOMMENDATIONS: 1. Discussed with RN and RT. We will continue with present assist control mode. Precedex added to propofol for severe agitation. 2. Follow ABGs and make necessary adjustments. 3. Likely anoxic encephalopathy. Neurology following. 4. Follow labs. 5. Follow chest x-ray. As needed. 6. Empiric antibiotic, Zosyn to cover for aspiration pneumonitis. 7. DVT and stress ulcer prophylaxis. MILANA URBINA MD December 16, 2021 11:19
[2021-12-16] MEDS: DEXMEDETOMIDINE 400 MCG in IV NORMAL SALINE 100ML 96 ML IV PRN ×2 (14:30→23:29)
--- NOTE | 2021-12-16 18:40 | NUR ---
Patient has had several episodes of sitting up in the bed and thrashing around, turning head side to side, flailing his arms requiring increased sedation throughout the shift. ET tube cuff appears to have air leak in it requiring multiple additions of air. Spoke with Lee JACKSON concerning this and he explained that the tidal volume is staying higher than 400 and in the event that the tidal volume decreases then the ET tube may need replaced. Patient does not follow commands. Thrashing occurs at times when providing care to patient such as oral care or suction but at other times he will start to cough then come up out of the bed thrashing around requiring additional sedative medications. Patient's has been made aware of patient's behavior and requirement for additional sedation. states that he is not surprised since the patient thrashes around during sleep and awakening when not intubated.
[2021-12-16] MEDS: FAMOTIDINE 20 MG/2 ML VIAL IVP SCH (20:50)
[2021-12-17] VITALS (24 sets, daily range): BP systolic 99–143; BP diastolic 56–87
[2021-12-17] MEDS: IV NORMAL SALINE 1000ML BAG 1,000 ML IV SCH ×3 (03:00→17:06)
[2021-12-17] MEDS: PROPOFOL 100 ML IV PRN ×7 (03:02→23:32)
[2021-12-17] MEDS: PIPERACILLIN/TAZOBACTAM 4.5 GM in IV DEXTROSE 5% 100ML 100 ML IV SCH ×3 (06:13→18:21)
[2021-12-17] MEDS: DEXMEDETOMIDINE 400 MCG in IV NORMAL SALINE 100ML 96 ML IV PRN ×3 (06:13→23:30)
[2021-12-17 09:09] LABS: BASE EXCESS ABG -3 mmol/L (-3-3); HCO3 ABG 22 mmol/L (21-28); PCO2 ABG 37 mmHg (35-46); PO2 ABG 123 mmHg (85-108); SAT O2 ABG 98 % (92-99)
[2021-12-17 09:11] LABS: FIO2 ABG 40
--- NOTE | 2021-12-17 09:56 | PDOC ---
PROGRESS NOTES Date of Service DATE: 12/17/21 TIME: 09:55 Assessment Toxic encephalopathy, drug overdose, no evidence of ongoing seizure activity, intracranial process such as stroke or cerebral edema. Plan We may need to load him with Geodon and simply extubate him and discontinue the sedatives. Patient's tells us that he gets like this whenever he is on the ventilator. No way for me to tell whether he has anoxic encephalopathy given the sedation. Thus, there is no pulmonary reason to keep him intubated, we should try this extubation Subjective None Objective Vital Signs Date Time Temp Pulse Resp B/P (MAP) Pulse Ox O2 Delivery O2 Flow Rate FiO2 12/17/21 08:45 100 Ventilator 12/17/21 08:00 98.8 70 16 120/76 98.8 Intake and Output 12/17/21 07:00 Intake Total 3987.9 ml Output Total 1675 ml Balance 2312.9 ml Intake IV Total 3987.9 ml Output Urine Total 1675 ml PHYSICAL EXAM Intubated and sedated, off sedation he remains agitated and not following commands PERRL. EOMI. CN: no focal findings. Muscle tone: normal. Muscle strength: Slight withdrawal to pain DTR: 1+ Plantar reflex: Silent Gait: not examined in bed. Sensory exam: no abnormal findings. Cerebellar: Not cooperative Review of Relevant I have reviewed the following items satish (where applicable) has been applied. Labs Laboratory Tests Test 12/16/21 08:00 12/17/21 09:00 O2 Saturation 99 % (92-99) 98 % (92-99) Arterial Blood pH 7.41 (7.35-7.45) 7.39 (7.35-7.45) Arterial Blood pCO2 at Patient Temp 34 mmHg (35-46) 37 mmHg (35-46) Arterial Blood pO2 at Patient Temp 167 mmHg (85-108) 123 mmHg (85-108) Arterial Blood HCO3 21 mmol/L (21-28) 22 mmol/L (21-28) Arterial Blood Base Excess -3 mmol/L (-3-3) -3 mmol/L (-3-3) FiO2 50 40 Laboratory Tests Test 12/17/21 09:00 O2 Saturation 98 % (92-99) Arterial Blood pH 7.39 (7.35-7.45) Arterial Blood pCO2 at Patient Temp 37 mmHg (35-46) Arterial Blood pO2 at Patient Temp 123 mmHg (85-108) Arterial Blood HCO3 22 mmol/L (21-28) Arterial Blood Base Excess -3 mmol/L (-3-3) FiO2 40 Medications Current Medications Fentanyl Citrate 30 ml @ 2.5 mls/hr CONT PRN IV SEE PROTOCOL; Start 12/13/21 at 21:15 Midazolam HCl 100 ml @ 1 mls/hr CONT PRN IV SEE PROTOCOL; Start 12/13/21 at 21:15; Stop 12/15/21 at 11:13; Status DC Propofol 100 ml @ 2.901 mls/ hr CONT PRN IV PER PROTOCOL Last administered on 12/17/21at 07:13; Start 12/13/21 at 21:15 Glycerin/ Hypromellose/ Polyethylene (Artificial Tears) 1 drop PRN Q1HR PRN OU DRY EYE; Start 12/13/21 at 21:15 Dexmedetomidine HCl 400 mcg/ Sodium Chloride 100 ml @ 4.835 mls/ hr CONT PRN IV PER PROTOCOL Last administered on 12/17/21at 06:13; Start 12/13/21 at 21:15 Sodium Chloride 500 ml @ 500 mls/hr 1X PRN PRN IV SEE COMMENTS; Start 12/13/21 at 21:15 Atropine Sulfate (ATROPINE 0.5mg SYRINGE) 0.5 mg PRN Q5MIN PRN IV SEE COMMENTS; Start 12/13/21 at 21:15 Piperacillin Sod/ Tazobactam Sod (Zosyn Per Pharmacy) 1 each PRN DAILY PRN MC SEE COMMENTS; Start 12/14/21 at 09:15 Enoxaparin Sodium (Lovenox 40mg Syringe) 40 mg Q24H SQ Last administered on 12/16/21at 10:46; Start 12/14/21 at 11:00 Famotidine (Pepcid Vial) 20 mg QHS IVP Last administered on 12/16/21at 20:50; Start 12/14/21 at 21:00 Piperacillin Sod/ Tazobactam Sod 3.375 gm/Sodium Chloride 50 ml @ 100 mls/hr 1X ONCE IV Last administered on 12/14/21at 09:37; Start 12/14/21 at 10:00; Stop 12/14/21 at 10:29; Status DC Magnesium Sulfate 100 ml @ 25 mls/hr 1X ONCE IV Last administered on 12/14/21at 10:23; Start 12/14/21 at 10:00; Stop 12/14/21 at 13:59; Status DC Piperacillin Sod/ Tazobactam Sod 4.5 gm/Sodium Chloride 100 ml @ 200 mls/hr Q6HRS IV ; Start 12/14/21 at 18:00; Stop 12/14/21 at 10:22; Status DC Piperacillin Sod/ Tazobactam Sod 4.5 gm/Dextrose 100 ml @ 200 mls/hr Q6HRS IV Last administered on 12/17/21at 06:13; Start 12/14/21 at 18:00 Acetaminophen (Tylenol) 650 mg PRN Q6HRS PRN PEG MILD PAIN / TEMP > 100.3'F [place] [facility] administered on 12/14/21at 17:04; Start 12/14/21 at 17:00 Sodium Chloride 1,000 ml @ 125 mls/hr Q8H IV Last administered on 12/17/21at 08:05; Start 12/15/21 at 11:00 Midazolam HCl (Versed) 5 mg STK-MED ONCE .ROUTE ; Start 12/16/21 at 08:37; Stop 12/16/21 at 08:38; Status DC Midazolam HCl (Versed) 5 mg 1X ONCE IVP ; Start 12/16/21 at 08:45; Stop 12/16/21 at 08:46; Status DC Midazolam HCl (Versed) 5 mg STK-MED ONCE .ROUTE ; Start 12/16/21 at 08:45; Stop 12/17/21 at 08:55; Status DC Active Scripts Active Hydrocodone-Apap 5-325 (Hydrocodone Bit/Acetaminophen) 1 Tab Tablet 1 Tab PO PRN Q6HRS PRN Ibuprofen 600 Mg Tablet 600 Mg PO PRN Q6HRS PRN Vitals/I & O Vital Sign - Last 24 Hours 12/16/21 12/16/21 12/16/21 12/16/21 10:00 10:00 11:00 12:00 Pulse 78 76 Resp 19 19 B/P (MAP) 97/51 101/56 Pulse Ox 100 100 100 O2 Delivery Ventilator Ventilator Ventilator Mechanical Ventilator 12/16/21 12/16/21 12/16/21 12/16/21 12:00 12:03 13:00 13:54 Temp 97.3 97.3 Pulse 74 74 Resp 19 19 B/P (MAP) 97/54 98/53 Pulse Ox 90 100 100 100 O2 Delivery Ventilator Ventilator Ventilator Ventilator 12/16/21 12/16/21 12/16/21 12/16/21 14:00 15:00 15:35 16:00 Pulse 73 74 Resp 19 19 B/P (MAP) 97/55 105/64 Pulse Ox 100 100 100 O2 Delivery Ventilator Ventilator Ventilator Mechanical Ventilator 12/16/21 12/16/21 12/16/21 12/16/21 16:00 17:00 17:38 18:00 Temp 98.6 98.6 Pulse 75 79 75 Resp 19 21 18 B/P (MAP) 107/61 101/59 99/55 Pulse Ox 100 100 100 100 O2 Delivery Ventilator Ventilator Ventilator Ventilator 12/16/21 12/16/21 12/16/21 12/16/21 19:00 19:51 20:00 20:00 Temp 97.9 97.9 Pulse 74 74 Resp 18 18 B/P (MAP) 114/68 119/74 Pulse Ox 100 100 100 O2 Delivery Ventilator Mechanical Ventilator Ventilator Ventilator 12/16/21 12/16/21 12/16/21 12/16/21 21:00 22:00 22:00 23:00 Pulse 70 76 78 Resp 18 18 18 B/P (MAP) 122/77 123/70 131/62 Pulse Ox 100 100 100 100 O2 Delivery Ventilator Ventilator Ventilator Ventilator 12/17/21 12/17/21 12/17/21 12/17/21 00:00 00:00 00:00 01:00 Temp 98.6 98.6 Pulse 76 72 Resp 18 18 B/P (MAP) 113/64 117/73 Pulse Ox 100 100 100 O2 Delivery Ventilator Mechanical Ventilator Ventilator Ventilator 12/17/21 12/17/21 12/17/21 12/17/21 02:00 02:30 03:00 04:00 Temp 98.1 98.1 Pulse 72 72 74 Resp 18 18 18 B/P (MAP) 121/72 121/76 124/74 Pulse Ox 100 100 100 100 O2 Delivery Ventilator Ventilator Ventilator Ventilator 12/17/21 12/17/21 12/17/21 12/17/21 04:00 05:00 05:00 06:00 Pulse 74 74 Resp 18 18 B/P (MAP) 128/74 124/74 Pulse Ox 100 100 100 O2 Delivery Mechanical Ventilator Ventilator Ventilator Ventilator 12/17/21 12/17/21 12/17/21 07:00 08:00 08:45 Temp 98.8 98.8 Pulse 71 70 Resp 16 16 B/P (MAP) 118/74 120/76 Pulse Ox 100 100 100 O2 Delivery Ventilator Ventilator Ventilator Intake and Output0 12/16/21 12/16/21 12/17/21 15:00 23:00 07:00 Intake Total 100 ml 1867.9 ml 2020 ml Output Total 440 ml 555 ml 680 ml Balance -340 ml 1312.9 ml 1340 ml Justicifation of Admission Dx: Justifications for Admission: Justification of Admission Dx: N/A DOMINICK TORRES MD December 17, 2021 09:56
--- NOTE | 2021-12-17 09:56 | PDOC ---
[facility] PROGRESS NOTE Date of Service DOS: DATE: 12/17/21 TIME: 09:54 Chief Complaint Chief Complaint Found down with probable overdose Respiratory failure requiring intubation Forehead hematoma Previous suicide attempt with baclofen and/or Flexeril, methamphetamine abuse. History of Present Illness History of Present Illness 12/17/2021 Patient seen and examined in the ICU He remains on the vent AC/16/500/40 with 5 of PEEP He has mitts on for his safety Dias to bedside drainage Pupils are 2 mm and symmetrical Has SCDs on IV Zosyn hanging Sedated with propofol and Precedex (we are going to try a sedation vacation this morning again) Discussed with RN Discussed with case management Chart reviewed 12/16/2021 Patient seen and examined in the ICU He remains on the ventilator AC/16/500/50 with 5 of PEEP Discussed with RN Discussed with case management Chart reviewed We tried to wake him up yesterday and this morning but he gets too agitated Pupils 2 mm and symmetrical He remains critically 12/15/2021 Patient seen and examined Discussed with RN (try to wake the patient up this morning but he did not do well he is back on propofol) Pupils are 2 mm minimally reactive Chart reviewed He is still on the vent AC/16/500/50 percent with 5 of PEEP Has mitts on for his safety Has IV Zosyn hanging He remains critically ill Vitals/I&O Vitals/I&O: Vital Signs Date Time Temp Pulse Resp B/P (MAP) Pulse Ox O2 Delivery O2 Flow Rate FiO2 12/17/21 08:45 100 Ventilator 12/17/21 08:00 98.8 70 16 120/76 98.8 I & O 12/16/21 12/16/21 12/17/21 15:00 23:00 07:00 Intake Total 100 ml 1867.9 ml 2020 ml Output Total 440 ml 555 ml 680 ml Balance -340 ml 1312.9 ml 1340 ml Physical Exam General: Other (Sedated with propofol) Heart: Regular rate Lungs: Clear Abdomen: Normal bowel sounds Extremities: No clubbing Skin: No rashes Labs Labs: Laboratory Tests Test 12/17/21 09:00 O2 Saturation 98 % (92-99) Arterial Blood pH 7.39 (7.35-7.45) Arterial Blood pCO2 at Patient Temp 37 mmHg (35-46) Arterial Blood pO2 at Patient Temp 123 mmHg (85-108) Arterial Blood HCO3 22 mmol/L (21-28) Arterial Blood Base Excess -3 mmol/L (-3-3) FiO2 40 Assessment and Plan Assessmemt and Plan Found down with probable overdose Respiratory failure requiring intubation Forehead hematoma Previous suicide attempt with baclofen and/or Flexeril, methamphetamine abuse. Plan ICU monitoring We are doing daily sedation vacations in hopes of getting him woke up so we can get him off the vent Appreciate neurology input Trend labs Trend chest x-rays IV antibiotics DVT prophylaxis Full code Prognosis extremely guarded Appreciate subspecialist input CC time 33 minutes Comment Review of Relevant I have reviewed the following items satish (where applicable) has been applied. Justifications for Admission Other Justification ROSA BEAN III DO December 17, 2021 09:56
[2021-12-17] MEDS: ENOXAPARIN 40 MG/0.4 ML SYRINGE. SQ SCH (10:43)
--- NOTE | 2021-12-17 11:29 | PDOC ---
PULMONARY PROGRESS NOTES DATE: 12/17/21 TIME: 11:28 Subjective Patient remains on assist control mode. Patient became severely violent when sedation was taken off this morning. Not sure if he was following any commands. Receded with propofol and Precedex. Vitals Vital Signs Date Time Temp Pulse Resp B/P (MAP) Pulse Ox O2 Delivery O2 Flow Rate FiO2 12/17/21 11:00 72 16 131/83 100 Ventilator 12/17/21 08:00 98.8 98.8 Comments Remains intubated and sedated. Lungs: Clear Cardiovascular: S1 Abdomen: Soft Extremities: No Edema Skin: Warm Labs Laboratory Tests Test 12/16/21 08:00 12/17/21 09:00 O2 Saturation 99 % (92-99) 98 % (92-99) Arterial Blood pH 7.41 (7.35-7.45) 7.39 (7.35-7.45) Arterial Blood pCO2 at Patient Temp 34 mmHg (35-46) 37 mmHg (35-46) Arterial Blood pO2 at Patient Temp 167 mmHg (85-108) 123 mmHg (85-108) Arterial Blood HCO3 21 mmol/L (21-28) 22 mmol/L (21-28) Arterial Blood Base Excess -3 mmol/L (-3-3) -3 mmol/L (-3-3) FiO2 50 40 Laboratory Tests Test 12/17/21 09:00 O2 Saturation 98 % (92-99) Arterial Blood pH 7.39 (7.35-7.45) Arterial Blood pCO2 at Patient Temp 37 mmHg (35-46) Arterial Blood pO2 at Patient Temp 123 mmHg (85-108) Arterial Blood HCO3 22 mmol/L (21-28) Arterial Blood Base Excess -3 mmol/L (-3-3) FiO2 40 Medications Active Scripts Medications Dose Route/Sig Max Daily Dose Days Date Category Hydrocodone-Apap 5-325 (Hydrocodone Bit/Acetaminophen) 1 Tab Tablet 1 Tab PO PRN Q6HRS PRN 01/25/21 Rx Ibuprofen 600 Mg Tablet 600 Mg PO PRN Q6HRS PRN 01/25/21 Rx Comments Chest x-ray reviewed 12/16/2021. Improving right basal infiltrate and slightly increased left basal infiltrate. Impression . 1. Acute hypoxic respiratory failure secondary to toxic encephalopathy and suspected suicidal attempt. Cannot exclude anoxic encephalopathy. Baclofen overdose. 2. Acute toxic encephalopathy. Urine drug screen positive for meth. We will repeat the test.Cannot exclude anoxic encephalopathy. 3. Abnormal chest x-ray with right lung infiltrate along with fever. Suspect aspiration pneumonitis. 4. ET tube cuff leak. Plan . RECOMMENDATIONS: 1. Discussed with RN and RT. We will continue with present assist control mode. Precedex added to propofol for severe agitation. It is difficult to assess his mental status and to have a better idea whether he has any anoxic encephalopathy. Patient continues to have violent episodes when sedation has been taken off. We will keep trying sedation holiday every day. 2. Follow ABGs and make necessary adjustments. 3. Likely anoxic encephalopathy. Neurology following. 4. Follow labs. 5. Follow chest x-ray. As needed. 6. Empiric antibiotic, Zosyn to cover for aspiration pneumonitis. 7. DVT and stress ulcer prophylaxis. 8. We will replace the endotracheal tube due to cuff leak. MILANA URBINA MD December 17, 2021 11:29
--- NOTE | 2021-12-17 11:30 | PDOC ---
Provider Note Date of Service: DATE: 12/17/21 TIME: 11:26 Provider Note called for request to change leaking ETT. Present tube taped at 24cm. OETT changed with the use of tube changer without diff and secured at 24cm. course BBS. chest xray pending Justifications for Admission Other Justification LEO GARCIA CRNA December 17, 2021 11:30
--- NOTE | 2021-12-17 12:24 | RAD ---
EXAM: Chest, single view. HISTORY: Nasogastric tube placement. COMPARISON: 12/26/2021 FINDINGS: A frontal view of the chest is obtained. There is a nasogastric tube within the distal stom ach. There is an endotracheal tube within the mid trachea, with the tip approximately 6.7 cm proximal to the kendy. There is left greater than right lower lobe infiltrate or atelectasis. There is no pl eural effusion or pneumothorax. The heart is normal in size. IMPRESSION: 1. Endotracheal tube and nasogastric tube in expected position. 2. Stable left greater than right lower lobe infiltrate or atelectasis. Electronically signed by: Renetta Dolan MD (12/17/2021 11:56 AM) [id number]
[2021-12-17] MEDS: FAMOTIDINE 20 MG/2 ML VIAL IVP SCH (21:26)
[2021-12-18] VITALS (23 sets, daily range): BP systolic 134–180; BP diastolic 64–101
[2021-12-18] MEDS: IV NORMAL SALINE 1000ML BAG 1,000 ML IV SCH ×3 (00:06→19:19)
[2021-12-18] MEDS: PIPERACILLIN/TAZOBACTAM 4.5 GM in IV DEXTROSE 5% 100ML 100 ML IV SCH ×4 (00:06→17:55)
[2021-12-18] MEDS: PROPOFOL 100 ML IV PRN ×2 (03:07→05:45)
[2021-12-18] MEDS: DEXMEDETOMIDINE 400 MCG in IV NORMAL SALINE 100ML 96 ML IV PRN ×4 (04:52→22:08)
[2021-12-18 08:54] LABS: BASE EXCESS ABG -2 mmol/L (-3-3); HCO3 ABG 23 mmol/L (21-28); PCO2 ABG 39 mmHg (35-46); PO2 ABG 124 mmHg (85-108); SAT O2 ABG 98 % (92-99)
[2021-12-18 08:57] LABS: FIO2 ABG 40
--- NOTE | 2021-12-18 09:26 | PDOC ---
PULMONARY PROGRESS NOTES DATE: 12/18/21 TIME: 09:21 Subjective Patient remains on assist control mode. Oxygen requirement stable at 40%. Vitals Vital Signs Date Time Temp Pulse Resp B/P (MAP) Pulse Ox O2 Delivery O2 Flow Rate FiO2 12/18/21 08:15 100 Ventilator 12/18/21 08:00 98.3 67 16 144/94 98.3 Comments Sedation is off. He is starting to follow commands. Lungs: Clear Cardiovascular: S1 Abdomen: Soft Extremities: No Edema Skin: Warm Labs Laboratory Tests Test 12/17/21 09:00 12/18/21 08:00 O2 Saturation 98 % (92-99) 98 % (92-99) Arterial Blood pH 7.39 (7.35-7.45) 7.38 (7.35-7.45) Arterial Blood pCO2 at Patient Temp 37 mmHg (35-46) 39 mmHg (35-46) Arterial Blood pO2 at Patient Temp 123 mmHg (85-108) 124 mmHg (85-108) Arterial Blood HCO3 22 mmol/L (21-28) 23 mmol/L (21-28) Arterial Blood Base Excess -3 mmol/L (-3-3) -2 mmol/L (-3-3) FiO2 40 40 Laboratory Tests Test 12/18/21 08:00 O2 Saturation 98 % (92-99) Arterial Blood pH 7.38 (7.35-7.45) Arterial Blood pCO2 at Patient Temp 39 mmHg (35-46) Arterial Blood pO2 at Patient Temp 124 mmHg (85-108) Arterial Blood HCO3 23 mmol/L (21-28) Arterial Blood Base Excess -2 mmol/L (-3-3) FiO2 40 Medications Active Scripts Medications Dose Route/Sig Max Daily Dose Days Date Category Hydrocodone-Apap 5-325 (Hydrocodone Bit/Acetaminophen) 1 Tab Tablet 1 Tab PO PRN Q6HRS PRN 01/25/21 Rx Ibuprofen 600 Mg Tablet 600 Mg PO PRN Q6HRS PRN 01/25/21 Rx Comments Chest x-ray reviewed 12/16/2021. Improving right basal infiltrate and slightly increased left basal infiltrate. Impression . 1. Acute hypoxic respiratory failure secondary to toxic encephalopathy( ba clofen, meth) and suspected suicidal attempt. Less likely anoxic encephalopathy. 2. Acute toxic encephalopathy. Urine drug screen positive for meth. 3. Abnormal chest x-ray with right lung infiltrate along with fever. Suspect aspiration pneumonitis. 4. ET tube cuff leak. Replaced yesterday. Plan . Updated 12/18/2021 1. Discussed with RN and RT. I have discontinued propofol this morning and observe the patient. He started to follow commands. He was more appropriate and less agitated. I think he should be able to protect his airway. We will proceed with extubation. 2. Follow ABGs as needed 3. Neurology following. 4. Follow labs. 5. Follow chest x-ray. As needed. 6. Empiric antibiotic, Zosyn to cover for aspiration pneumonitis. 7. DVT and stress ulcer prophylaxis. 8. consulting services manager to follow-up. Patient will need sitter postextubation. Updated 12/17/2021. 1. Discussed with RN and RT. We will continue with present assist control mode. Precedex added to propofol for severe agitation. It is difficult to assess his mental status and to have a better idea whether he has any anoxic encephalopathy. Patient continues to have violent episodes when sedation has been taken off. We will keep trying sedation holiday every day. 2. Follow ABGs and make necessary adjustments. 3. Likely anoxic encephalopathy. Neurology following. 4. Follow labs. 5. Follow chest x-ray. As needed. 6. Empiric antibiotic, Zosyn to cover for aspiration pneumonitis. 7. DVT and stress ulcer prophylaxis. 8. We will replace the endotracheal tube due to cuff leak. MILANA URBINA MD December 18, 2021 09:26
[2021-12-18 09:58] LABS: CHOLESTEROL 164 mg/dL (0-200); TRIGLYCERIDES 1646 mg/dL (0-150)
--- NOTE | 2021-12-18 10:20 | PDOC ---
PROGRESS NOTES Date of Service DATE: 12/18/21 TIME: 10:19 Assessment Toxic encephalopathy, drug overdose, no evidence of ongoing seizure activity, intracranial process such as stroke or cerebral edema. Discussed with nurse, a lot of respiratory secretions so he needs to remain intubated Plan Continue ICU supportive care Subjective None Objective Vital Signs Date Time Temp Pulse Resp B/P (MAP) Pulse Ox O2 Delivery O2 Flow Rate FiO2 12/18/21 10:00 88 18 141/87 100 Ventilator 12/18/21 09:25 5.0 12/18/21 08:00 98.3 98.3 Intake and Output 12/18/21 07:00 Intake Total 4094 ml Output Total 3250 ml Balance 844 ml Intake IV Total 4094 ml Output Urine Total 3250 ml PHYSICAL EXAM Intubated and sedated, off sedation he remains agitated and not following commands PERRL. EOMI. CN: no focal findings. Muscle tone: normal. Muscle strength: Slight withdrawal to pain DTR: 1+ Plantar reflex: Silent Gait: not examined in bed. Sensory exam: no abnormal findings. Cerebellar: Not cooperative Review of Relevant I have reviewed the following items satish (where applicable) has been applied. Labs Laboratory Tests Test 12/17/21 09:00 12/18/21 08:00 12/18/21 08:48 O2 Saturation 98 % (92-99) 98 % (92-99) Arterial Blood pH 7.39 (7.35-7.45) 7.38 (7.35-7.45) Arterial Blood pCO2 at Patient Temp 37 mmHg (35-46) 39 mmHg (35-46) Arterial Blood pO2 at Patient Temp 123 mmHg (85-108) 124 mmHg (85-108) Arterial Blood HCO3 22 mmol/L (21-28) 23 mmol/L (21-28) Arterial Blood Base Excess -3 mmol/L (-3-3) -2 mmol/L (-3-3) FiO2 40 40 Triglycerides Level 1646 mg/dL (0-150) Cholesterol Level 164 mg/dL (0-200) LDL Cholesterol, Calculated mg/dL (0-100) VLDL Cholesterol, Calculated mg/dL (0-40) Non-HDL Cholesterol Calculated mg/dL (0-129) HDL Cholesterol mg/dL (40-60) Cholesterol/HDL Ratio Laboratory Tests Test 12/18/21 08:00 12/18/21 08:48 O2 Saturation 98 % (92-99) Arterial Blood pH 7.38 (7.35-7.45) Arterial Blood pCO2 at Patient Temp 39 mmHg (35-46) Arterial Blood pO2 at Patient Temp 124 mmHg (85-108) Arterial Blood HCO3 23 mmol/L (21-28) Arterial Blood Base Excess -2 mmol/L (-3-3) FiO2 40 Triglycerides Level 1646 mg/dL (0-150) Cholesterol Level 164 mg/dL (0-200) LDL Cholesterol, Calculated mg/dL (0-100) VLDL Cholesterol, Calculated mg/dL (0-40) Non-HDL Cholesterol Calculated mg/dL (0-129) HDL Cholesterol mg/dL (40-60) Cholesterol/HDL Ratio Medications Current Medications Fentanyl Citrate 30 ml @ 2.5 mls/hr CONT PRN IV SEE PROTOCOL; Start 12/13/21 at 21:15 Midazolam HCl 100 ml @ 1 mls/hr CONT PRN IV SEE PROTOCOL; Start 12/13/21 at 21:15; Stop 12/15/21 at 11:13; Status DC Propofol 100 ml @ 2.901 mls/ hr CONT PRN IV PER PROTOCOL Last administered on 12/18/21at 05:45; Start 12/13/21 at 21:15 Glycerin/ Hypromellose/ Polyethylene (Artificial Tears) 1 drop PRN Q1HR PRN OU DRY EYE; Start 12/13/21 at 21:15 Dexmedetomidine HCl 400 mcg/ Sodium Chloride 100 ml @ 4.835 mls/ hr CONT PRN IV PER PROTOCOL Last administered on 12/18/21at 04:52; Start 12/13/21 at 21:15 Sodium Chloride 500 ml @ 500 mls/hr 1X PRN PRN IV SEE COMMENTS; Start 12/13/21 at 21:15 Atropine Sulfate (ATROPINE 0.5mg SYRINGE) 0.5 mg PRN Q5MIN PRN IV SEE COMMENTS; Start 12/13/21 at 21:15 Piperacillin Sod/ Tazobactam Sod (Zosyn Per Pharmacy) 1 each PRN DAILY PRN MC SEE COMMENTS; Start 12/14/21 at 09:15 Enoxaparin Sodium (Lovenox 40mg Syringe) 40 mg Q24H SQ Last administered on 12/17/21at 10:43; Start 12/14/21 at 11:00 Famotidine (Pepcid Vial) 20 mg QHS IVP Last administered on 12/17/21at 21:26; Start 12/14/21 at 21:00 Piperacillin Sod/ Tazobactam Sod 3.375 gm/Sodium Chloride 50 ml @ 100 mls/hr 1X ONCE IV Last administered on 12/14/21at 09:37; Start 12/14/21 at 10:00; Stop 12/14/21 at 10:29; Status DC Magnesium Sulfate 100 ml @ 25 mls/hr 1X ONCE IV Last administered on 12/14/21at 10:23; Start 12/14/21 at 10:00; Stop 12/14/21 at 13:59; Status DC Piperacillin Sod/ Tazobactam Sod 4.5 gm/Sodium Chloride 100 ml @ 200 mls/hr Q6HRS IV ; Start 12/14/21 at 18:00; Stop 12/14/21 at 10:22; Status DC Piperacillin Sod/ Tazobactam Sod 4.5 gm/Dextrose 100 ml @ 200 mls/hr Q6HRS IV Last administered on 12/18/21at 05:44; Start 12/14/21 at 18:00 Acetaminophen (Tylenol) 650 mg PRN Q6HRS PRN PEG MILD PAIN / TEMP > 100.3'F Last administered on 12/14/21at 17:04; Start 12/14/21 at 17:00 Sodium Chloride 1,000 ml @ 125 mls/hr Q8H IV Last administered on 12/18/21at 00:06; Start 12/15/21 at 11:00 Midazolam HCl (Versed) 5 mg STK-MED ONCE .ROUTE ; Start 12/16/21 at 08:37; Stop 12/16/21 at 08:38; Status DC Midazolam HCl (Versed) 5 mg 1X ONCE IVP ; Start 12/16/21 at 08:45; Stop 12/16/21 at 08:46; Status DC Midazolam HCl (Versed) 5 mg STK-MED ONCE .ROUTE ; Start 12/16/21 at 08:45; Stop 12/17/21 at 08:55; Status DC Active Scripts Active Hydrocodone-Apap 5-325 (Hydrocodone Bit/Acetaminophen) 1 Tab Tablet 1 Tab PO PRN Q6HRS PRN Ibuprofen 600 Mg Tablet 600 Mg PO PRN Q6HRS PRN Vitals/I & O Vital Sign - Last 24 Hours 12/17/21 12/17/21 12/17/21 12/17/21 11:00 11:53 12:00 12:00 Temp 99.0 99.0 Pulse 72 74 Resp 16 16 B/P (MAP) 131/83 105/59 Pulse Ox 100 100 100 O2 Delivery Ventilator Ventilator Ventilator Mechanical Ventilator 12/17/21 12/17/21 12/17/21 12/17/21 13:00 13:00 14:00 15:00 Pulse 75 70 86 Resp 16 16 16 B/P (MAP) 99/56 102/60 123/79 Pulse Ox 100 100 100 100 O2 Delivery Ventilator Ventilator Ventilator Ventilator 12/17/21 12/17/21 12/17/21 12/17/21 15:40 16:00 16:00 17:00 Temp 98.9 98.9 Pulse 68 68 Resp 16 16 B/P (MAP) 115/57 143/86 Pulse Ox 100 100 100 O2 Delivery Ventilator Mechanical Ventilator Ventilator Ventilator 12/17/21 12/17/21 12/17/21 12/17/21 17:38 18:00 19:00 20:00 Pulse 72 67 Resp 16 20 B/P (MAP) 141/87 133/81 Pulse Ox 100 100 100 O2 Delivery Ventilator Ventilator Ventilator Mechanical Ventilator 12/17/21 12/17/21 12/17/21 12/17/21 20:00 20:00 21:00 22:00 Temp 98.9 98.9 Pulse 62 68 69 Resp 16 18 19 B/P (MAP) 132/84 133/85 139/87 Pulse Ox 100 100 100 100 O2 Delivery Ventilator Ventilator Ventilator Ventilator 12/17/21 12/17/21 12/18/21 12/18/21 22:30 23:00 00:00 00:00 Temp 97.5 97.5 Pulse 67 66 Resp 18 16 B/P (MAP) 138/85 137/85 Pulse Ox 100 100 100 O2 Delivery Ventilator Ventilator Ventilator Mechanical Ventilator 12/18/21 12/18/21 12/18/21 12/18/21 01:00 01:00 02:00 03:00 Pulse 64 64 Resp 18 16 B/P (MAP) 143/90 149/93 Pulse Ox 100 100 100 100 O2 Delivery Ventilator Ventilator Ventilator Ventilator 12/18/21 12/18/21 12/18/21 12/18/21 03:00 04:00 04:00 05:00 Temp 97.7 97.7 Pulse 63 63 Resp 16 16 B/P (MAP) 142/90 141/91 Pulse Ox 100 100 100 O2 Delivery Ventilator Mechanical Ventilator Ventilator Ventilator 12/18/21 12/18/21 12/18/21 12/18/21 05:00 06:00 07:00 08:00 Pulse 62 64 64 Resp 16 16 16 B/P (MAP) 146/93 134/84 146/64 Pulse Ox 100 100 100 O2 Delivery Ventilator Ventilator Ventilator Mechanical Ventilator 12/18/21 12/18/21 12/18/21 12/18/21 08:00 08:15 09:00 09:25 Temp 98.3 98.3 Pulse 67 64 Resp 16 16 B/P (MAP) 144/94 147/96 Pulse Ox 100 100 100 O2 Delivery Ventilator Ventilator Ventilator Nasal Cannula O2 Flow Rate 5.0 12/18/21 10:00 Pulse 88 Resp 18 B/P (MAP) 141/87 Pulse Ox 100 O2 Delivery Ventilator Intake and Output 12/17/21 12/17/21 12/18/21 15:00 23:00 07:00 Intake Total 100 ml 2045 ml 1949 ml Output Total 1015 ml 975 ml 1260 ml Balance -915 ml 1070 ml 689 ml Justicifation of Admission Dx: Justifications for Admission: Justification of Admission Dx: N/A DOMINICK TORRES MD December 18, 2021 10:20
[2021-12-18 10:36] LABS: CALCIUM 7.4 mg/dL (8.5-10.1); CREATININE 0.6 mg/dL (0.7-1.3); GFR 151.6; POTASSIUM 3.8 mmol/L (3.5-5.1)
--- NOTE | 2021-12-18 11:08 | PDOC ---
[facility] PROGRESS NOTE Date of Service DOS: DATE: 12/18/21 TIME: 11:07 Chief Complaint Chief Complaint Found down with probable overdose Respiratory failure requiring intubation Forehead hematoma Previous suicide attempt with baclofen and/or Flexeril, methamphetamine abuse. History of Present Illness History of Present Illness 12/18/2021 Patient seen and examined He has just been extubated Nodded yes that he could hear me but was unable to talk to me Discussed with RN Discussed with case management Chart reviewed 12/17/2021 Patient seen and examined in the ICU He remains on the vent AC/16/500/40 with 5 of PEEP He has mitts on for his safety Dias to bedside drainage Pupils are 2 mm and symmetrical Has SCDs on IV Zosyn hanging Sedated with propofol and Precedex (we are going to try a sedation vacation this morning again) Discussed with RN Discussed with case management Chart reviewed 12/16/2021 Patient seen and examined in the ICU He remains on the ventilator AC/16/500/50 with 5 of PEEP Discussed with RN Discussed with case management Chart reviewed We tried to wake him up yesterday and this morning but he gets too agitated Pupils 2 mm and symmetrical He remains critically 12/15/2021 Patient seen and examined Discussed with RN (try to wake the patient up this morning but he did not do well he is back on propofol) Pupils are 2 mm minimally reactive Chart reviewed He is still on the vent AC/16/500/50 percent with 5 of PEEP Has mitts on for his safety Has IV Zosyn hanging He remains critically ill Vitals/I&O Vitals/I&O: Vital Signs Date Time Temp Pulse Resp B/P (MAP) Pulse Ox O2 Delivery O2 Flow Rate FiO2 12/18/21 10:00 88 18 141/87 100 Ventilator 12/18/21 09:25 5.0 12/18/21 08:00 98.3 98.3 I & O 12/17/21 12/17/21 12/18/21 15:00 23:00 07:00 Intake Total 100 ml 2045 ml 1949 ml Output Total 1015 ml 975 ml 1260 ml Balance -915 ml 1070 ml 689 ml Physical Exam General: No acute distress, Other (Nodded yes to me but was unable to talk) Heart: Regular rate Lungs: Clear, Other (Has a cough) Abdomen: Normal bowel sounds Extremities: No clubbing Skin: No rashes Labs Labs: Laboratory Tests Test 12/18/21 08:00 12/18/21 08:48 O2 Saturation 98 % (92-99) Arterial Blood pH 7.38 (7.35-7.45) Arterial Blood pCO2 at Patient Temp 39 mmHg (35-46) Arterial Blood pO2 at Patient Temp 124 mmHg (85-108) Arterial Blood HCO3 23 mmol/L (21-28) Arterial Blood Base Excess -2 mmol/L (-3-3) FiO2 40 Sodium Level 142 mmol/L (136-145) Potassium Level 3.8 mmol/L (3.5-5.1) Chloride Level 108 mmol/L (98-107) Carbon Dioxide Level 20 mmol/L (21-32) Anion Gap 14 (6-14) Blood Urea Nitrogen 12 mg/dL (8-26) Creatinine 0.6 mg/dL (0.7-1.3) Estimated GFR (Cockcroft-Gault) 151.6 Glucose Level 79 mg/dL (70-99) Calcium Level 7.4 mg/dL (8.5-10.1) Triglycerides Level 1646 mg/dL (0-150) Cholesterol Level 164 mg/dL (0-200) LDL Cholesterol, Calculated mg/dL (0-100) VLDL Cholesterol, Calculated mg/dL (0-40) Non-HDL Cholesterol Calculated mg/dL (0-129) HDL Cholesterol mg/dL (40-60) Cholesterol/HDL Ratio Assessment and Plan Assessmemt and Plan Found down with probable overdose Respiratory failure requiring intubation Forehead hematoma Previous suicide attempt with baclofen and/or Flexeril, methamphetamine abuse. Plan ICU monitoring PT OT speech therapy Appreciate neurology input Trend labs Trend chest x-rays IV antibiotics DVT prophylaxis Full code Prognosis extremely guarded Appreciate subspecialist input Comment Review of Relevant I have reviewed the following items satish (where applicable) has been applied. Justifications for Admission Other Justification ROSA BEAN III DO December 18, 2021 11:08
[2021-12-18] MEDS: ENOXAPARIN 40 MG/0.4 ML SYRINGE. SQ SCH (11:11)
[2021-12-18] MEDS: OLANZapine IM 10 MG VIAL. IM PRN ×3 (15:03→19:19)
--- NOTE | 2021-12-18 17:32 | NUR ---
Security needed to assist with keeping pt safely in bed. Pt aggressive, no memory of why he is here. Wants to leave hospital. Doesn't understand why he can not leave at this time. Medication used for patient safety. Pt updated of pt status. Security will round regularly during child care. O2 monitor and bp cuff removed by pt. agitation caused by replacing left staff to leave off unitl vital signs are scheduled again. Pt VSS today. Dr Stearns made aware.
[2021-12-18] MEDS: FAMOTIDINE 20 MG/2 ML VIAL IVP SCH (20:45)
[2021-12-19] VITALS (19 sets, daily range): BP systolic 112–191; BP diastolic 57–107
[2021-12-19] MEDS: PIPERACILLIN/TAZOBACTAM 4.5 GM in IV DEXTROSE 5% 100ML 100 ML IV SCH ×5 (00:15→23:59)
[2021-12-19] MEDS: DEXMEDETOMIDINE 400 MCG in IV NORMAL SALINE 100ML 96 ML IV PRN ×4 (00:55→09:14)
[2021-12-19] MEDS: IV NORMAL SALINE 1000ML BAG 1,000 ML IV SCH ×3 (03:09→20:36)
[2021-12-19] MEDS: OLANZapine IM 10 MG VIAL. IM PRN ×2 (03:57→12:09)
--- NOTE | 2021-12-19 09:33 | PDOC ---
PULMONARY PROGRESS NOTES DATE: 12/19/21 TIME: 09:33 Subjective Patient extubated yesterday, awake alert, not more short of breath on room air Vitals Vital Signs Date Time Temp Pulse Resp B/P (MAP) Pulse Ox O2 Delivery O2 Flow Rate FiO2 12/19/21 09:00 76 23 188/100 98 Room Air 12/19/21 08:00 100.8 100.8 12/18/21 14:00 2.0 General: Alert Lungs: Clear, Other (Has a cough) Cardiovascular: S1 Abdomen: Soft Neuro Exam: Alert Extremities: No Edema Skin: Warm Labs Laboratory Tests Test 12/18/21 08:00 12/18/21 08:48 O2 Saturation 98 % (92-99) Arterial Blood pH 7.38 (7.35-7.45) Arterial Blood pCO2 at Patient Temp 39 mmHg (35-46) Arterial Blood pO2 at Patient Temp 124 mmHg (85-108) Arterial Blood HCO3 23 mmol/L (21-28) Arterial Blood Base Excess -2 mmol/L (-3-3) FiO2 40 Sodium Level 142 mmol/L (136-145) Potassium Level 3.8 mmol/L (3.5-5.1) Chloride Level 108 mmol/L (98-107) Carbon Dioxide Level 20 mmol/L (21-32) Anion Gap 14 (6-14) Blood Urea Nitrogen 12 mg/dL (8-26) Creatinine 0.6 mg/dL (0.7-1.3) Estimated GFR (Cockcroft-Gault) 151.6 Glucose Level 79 mg/dL (70-99) Calcium Level 7.4 mg/dL (8.5-10.1) Triglycerides Level 1646 mg/dL (0-150) Cholesterol Level 164 mg/dL (0-200) LDL Cholesterol, Calculated mg/dL (0-100) VLDL Cholesterol, Calculated mg/dL (0-40) Non-HDL Cholesterol Calculated mg/dL (0-129) HDL Cholesterol mg/dL (40-60) Cholesterol/HDL Ratio Medications Active Scripts Medications Dose Route/Sig Max Daily Dose Days Date Category Hydrocodone-Apap 5-325 (Hydrocodone Bit/Acetaminophen) 1 Tab Tablet 1 Tab PO PRN Q6HRS PRN 01/25/21 Rx Ibuprofen 600 Mg Tablet 600 Mg PO PRN Q6HRS PRN 01/25/21 Rx Comments Chest x-ray reviewed 12/16/2021. Improving right basal infiltrate and slightly increased left basal infiltrate. Impression . 1. Acute hypoxic respiratory failure secondary to toxic encephalopathy 2. Acute toxic encephalopathy. Urine drug screen positive for meth. 3. Abnormal chest x-ray with right lung infiltrate along with fever. Suspect aspiration pneumonitis. Plan . Updated 12/19 Respiratory status compensated Continue antibiotics Speech eval Social service to follow-up for disposition SANDY RUGGIERO MD December 19, 2021 09:33
--- NOTE | 2021-12-19 10:28 | PDOC ---
[facility] PROGRESS NOTE Date of Service DOS: DATE: 12/19/21 TIME: 10:26 Chief Complaint Chief Complaint Found down with probable overdose Respiratory failure requiring intubation Forehead hematoma Previous suicide attempt with baclofen and/or Flexeril, methamphetamine abuse. History of Present Illness History of Present Illness 12/20/2019 Patient seen and examined Discussed with RN Chart reviewed He is currently sedated Discussed with case 12/18/2021 Patient seen and examined He has just been extubated Nodded yes that he could hear me but was unable to talk to me Discussed with RN Discussed with case management Chart reviewed 12/17/2021 Patient seen and examined in the ICU He remains on the vent AC/16/500/40 with 5 of PEEP He has mitts on for his safety Dias to bedside drainage Pupils are 2 mm and symmetrical Has SCDs on IV Zosyn hanging Sedated with propofol and Precedex (we are going to try a sedation vacation this morning again) Discussed with RN Discussed with case management Chart reviewed 12/16/2021 Patient seen and examined in the ICU He remains on the ventilator AC/16/500/50 with 5 of PEEP Discussed with RN Discussed with case management Chart reviewed We tried to wake him up yesterday and this morning but he gets too agitated Pupils 2 mm and symmetrical He remains critically 12/15/2021 Patient seen and examined Discussed with RN (try to wake the patient up this morning but he did not do well he is back on propofol) Pupils are 2 mm minimally reactive Chart reviewed He is still on the vent AC/16/500/50 percent with 5 of PEEP Has mitts on for his safety Has IV Zosyn hanging He remains critically ill Vitals/I&O Vitals/I&O: Vital Signs Date Time Temp Pulse Resp B/P (MAP) Pulse Ox O2 Delivery O2 Flow Rate FiO2 12/19/21 10:00 73 25 184/107 94 Room Air 12/19/21 08:00 100.8 100.8 12/18/21 14:00 2.0 I & O 12/18/21 12/18/21 12/19/21 15:00 23:00 07:00 Intake Total 100 ml 2821 ml 2023 ml Output Total 1260 ml 2625 ml 2625 ml Balance -1160 ml 196 ml -602 ml Physical Exam General: No acute distress, Other (Sedated) Heart: Regular rate Lungs: Clear, Other (Has a cough) Abdomen: Normal bowel sounds Extremities: No clubbing Skin: No rashes Assessment and Plan Assessmemt and Plan Found down with probable overdose Respiratory failure requiring intubation Forehead hematoma Previous suicide attempt with baclofen and/or Flexeril, methamphetamine abuse. Plan Cardiac monitoring As needed sedation PT OT speech therapy Appreciate neurology input Trend labs Trend chest x-rays IV antibiotics DVT prophylaxis Full code Prognosis extremely guarded Appreciate subspecialist input Comment Review of Relevant I have reviewed the following items satish (where applicable) has been applied. Medications: Current Medications Medications (Trade) Dose Ordered Sig/Sumi Route PRN Reason Start Time Stop Time Status Last Admin Dose Admin Olanzapine (ZyPREXA IM) 10 mg PRN Q8HRS PRN IM ANXIETY / AGITATION 12/18/21 15:00 12/19/21 03:57 Justifications for Admission Other Justification ROSA BEAN III DO December 19, 2021 10:28
[2021-12-19] MEDS: ENOXAPARIN 40 MG/0.4 ML SYRINGE. SQ SCH ×2 (10:59→11:00)
[2021-12-19] MEDS ORDERED: hydrALAZINE 20 MG/ML VIAL. IVP PRN (11:15)
--- NOTE | 2021-12-19 12:43 | PDOC ---
PROGRESS NOTES Date of Service DATE: 12/19/21 TIME: 12:42 Assessment Toxic encephalopathy, drug overdose, no evidence of ongoing seizure activity, intracranial process such as stroke or cerebral edema. Extubated 12/18 Plan He is on as needed olanzapine No additional neurological studies needed Subjective Denies pain Objective Vital Signs Date Time Temp Pulse Resp B/P (MAP) Pulse Ox O2 Delivery O2 Flow Rate FiO2 12/19/21 12:08 73 164/76 12/19/21 11:00 26 92 Room Air 12/19/21 08:00 100.8 100.8 12/18/21 14:00 2.0 Intake and Output 12/19/21 07:00 Intake Total 4944 ml Output Total 6510 ml Balance -1566 ml Intake Oral 0 ml IV Total 4944 ml Output Urine Total 6510 ml # Bowel Movements 2 PHYSICAL EXAM Alert, knows he is in the hospital but does not know its name, off on the date, follows commands PERRL. EOMI. CN: no focal findings. Muscle tone: normal. Muscle strength: 4/5 DTR: 1+ Plantar reflex: Flexor Gait: not examined in bed. Sensory exam: no abnormal findings. No cerebellar findings Review of Relevant I have reviewed the following items satish (where applicable) has been applied. Labs Laboratory Tests Test 12/18/21 08:00 12/18/21 08:48 O2 Saturation 98 % (92-99) Arterial Blood pH 7.38 (7.35-7.45) Arterial Blood pCO2 at Patient Temp 39 mmHg (35-46) Arterial Blood pO2 at Patient Temp 124 mmHg (85-108) Arterial Blood HCO3 23 mmol/L (21-28) Arterial Blood Base Excess -2 mmol/L (-3-3) FiO2 40 Sodium Level 142 mmol/L (136-145) Potassium Level 3.8 mmol/L (3.5-5.1) Chloride Level 108 mmol/L (98-107) Carbon Dioxide Level 20 mmol/L (21-32) Anion Gap 14 (6-14) Blood Urea Nitrogen 12 mg/dL (8-26) Creatinine 0.6 mg/dL (0.7-1.3) Estimated GFR (Cockcroft-Gault) 151.6 Glucose Level 79 mg/dL (70-99) Calcium Level 7.4 mg/dL (8.5-10.1) Triglycerides Level 1646 mg/dL (0-150) Cholesterol Level 164 mg/dL (0-200) LDL Cholesterol, Calculated mg/dL (0-100) VLDL Cholesterol, Calculated mg/dL (0-40) Non-HDL Cholesterol Calculated mg/dL (0-129) HDL Cholesterol mg/dL (40-60) Cholesterol/HDL Ratio Medications Current Medications Fentanyl Citrate 30 ml @ 2.5 mls/hr CONT PRN IV SEE PROTOCOL; Start 12/13/21 at 21:15 Midazolam HCl 100 ml @ 1 mls/hr CONT PRN IV SEE PROTOCOL; Start 12/13/21 at 21:15; Stop 12/15/21 at 11:13; Status DC Propofol 100 ml @ 2.901 mls/ hr CONT PRN IV PER PROTOCOL Last administered on 12/18/21at 05:45; Start 12/13/21 at 21:15 Glycerin/ Hypromellose/ Polyethylene (Artificial Tears) 1 drop PRN Q1HR PRN OU DRY EYE; Start 12/13/21 at 21:15 Dexmedetomidine HCl 400 mcg/ Sodium Chloride 100 ml @ 4.835 mls/ hr CONT PRN IV PER PROTOCOL Last administered on 12/19/21at 09:14; Start 12/13/21 at 21:15 Sodium Chloride 500 ml @ 500 mls/hr 1X PRN PRN IV SEE COMMENTS; Start 12/13/21 at 21:15 Atropine Sulfate (ATROPINE 0.5mg SYRINGE) 0.5 mg PRN Q5MIN PRN IV SEE COMMENTS; Start 12/13/21 at 21:15 Piperacillin Sod/ Tazobactam Sod (Zosyn Per Pharmacy) 1 each PRN DAILY PRN MC SEE COMMENTS; Start 12/14/21 at 09:15 Enoxaparin Sodium (Lovenox 40mg Syringe) 40 mg Q24H SQ Last administered on 12/18/21at 11:11; Start 12/14/21 at 11:00 Famotidine (Pepcid Vial) 20 mg QHS IVP Last administered on 12/18/21at 20:45; Start 12/14/21 at 21:00 Piperacillin Sod/ Tazobactam Sod 3.375 gm/Sodium Chloride 50 ml @ 100 mls/hr 1X ONCE IV Last administered on 12/14/21at 09:37; Start 12/14/21 at 10:00; Stop 12/14/21 at 10:29; Status DC Magnesium Sulfate 100 ml @ 25 mls/hr 1X ONCE IV Last administered on 12/14/21at 10:23; Start 12/14/21 at 10:00; Stop 12/14/21 at 13:59; Status DC Piperacillin Sod/ Tazobactam Sod 4.5 gm/Sodium Chloride 100 ml @ 200 mls/hr Q6HRS IV ; Start 12/14/21 at 18:00; Stop 12/14/21 at 10:22; Status DC Piperacillin Sod/ Tazobactam Sod 4.5 gm/Dextrose 100 ml @ 200 mls/hr Q6HRS IV Last administered on 12/19/21at 12:07; Start 12/14/21 at 18:00 Acetaminophen (Tylenol) 650 mg PRN Q6HRS PRN PEG MILD PAIN / TEMP > 100.3'F Last administered on 12/14/21at 17:04; Start 12/14/21 at 17:00 Sodium Chloride 1,000 ml @ 125 mls/hr Q8H IV Last administered on 12/19/21at 10:58; Start 12/15/21 at 11:00 Midazolam HCl (Versed) 5 mg STK-MED ONCE .ROUTE ; Start 12/16/21 at 08:37; Stop 12/16/21 at 08:38; Status DC Midazolam HCl (Versed) 5 mg 1X ONCE IVP ; Start 12/16/21 at 08:45; Stop 12/16/21 at 08:46; Status DC Midazolam HCl (Versed) 5 mg STK-MED ONCE .ROUTE ; Start 12/16/21 at 08:45; Stop 12/17/21 at 08:55; Status DC Olanzapine (ZyPREXA IM) 10 mg PRN Q8HRS PRN IM ANXIETY / AGITATION Last administered on 12/19/21at 12:09; Start 12/18/21 at 15:00 Hydralazine HCl (Apresoline Inj) 10 mg PRN Q4HRS PRN IVP ELEVATED BP, SEE COMMENTS Last administered on 12/19/21at 12:08; Start 12/19/21 at 11:15 Active Scripts Active Hydrocodone-Apap 5-325 (Hydrocodone Bit/Acetaminophen) 1 Tab Tablet 1 Tab PO PRN Q6HRS PRN Ibuprofen 600 Mg Tablet 600 Mg PO PRN Q6HRS PRN Vitals/I & O Vital Sign - Last 24 Hours 12/18/21 12/18/21 12/18/21 12/18/21 13:00 14:00 15:00 16:00 Pulse 98 97 81 Resp 20 22 20 B/P (MAP) 171/94 142/82 151/101 Pulse Ox 100 100 O2 Delivery Nasal Cannula Nasal Cannula Nasal Cannula Room Air O2 Flow Rate 2.0 2.0 12/18/21 12/18/21 12/18/21 12/18/21 16:00 17:00 18:00 19:00 Temp 99.0 99.0 Pulse 69 73 74 65 Resp 18 20 20 B/P (MAP) 154/98 158/92 165/100 Pulse Ox 94 O2 Delivery Room Air Room Air Room Air Room Air 12/18/21 12/18/21 12/18/21 12/18/21 20:00 20:00 21:00 22:00 Temp 98.9 98.9 Pulse 65 70 67 Resp 20 23 B/P (MAP) 154/79 165/96 180/94 Pulse Ox 95 94 96 O2 Delivery Room Air Room Air Room Air Room Air 12/18/21 12/18/21 12/19/21 12/19/21 23:00 23:59 00:01 01:00 Temp 97.9 97.9 Pulse 64 65 72 Resp 22 24 26 B/P (MAP) 179/99 191/101 186/97 Pulse Ox 96 95 94 O2 Delivery Room Air Room Air Room Air Room Air 12/19/21 12/19/21 12/19/21 12/19/21 02:00 03:00 04:00 04:00 Temp 98.5 98.5 Pulse 64 72 87 Resp 25 20 24 B/P (MAP) 188/101 187/103 186/97 Pulse Ox 94 O2 Delivery Room Air Room Air Room Air Room Air 12/19/21 12/19/21 12/19/21 12/19/21 05:00 06:00 07:00 08:00 Temp 100.8 100.8 Pulse 72 65 69 75 Resp 20 23 26 26 B/P (MAP) 187/103 158/100 180/98 169/98 Pulse Ox 95 O2 Delivery Room Air Room Air Room Air Room Air 12/19/21 12/19/21 12/19/21 12/19/21 08:00 09:00 10:00 11:00 Pulse 76 73 68 Resp 23 25 26 B/P (MAP) 188/100 184/107 181/83 Pulse Ox 98 94 92 O2 Delivery Room Air Room Air Room Air Room Air 12/19/21 12:08 Pulse 73 B/P (MAP) 164/76 Intake and Output 12/18/21 12/18/21 12/19/21 15:00 23:00 07:00 Intake Total 100 ml 2821 ml 2023 ml Output Total 1260 ml 2625 ml 2625 ml Balance -1160 ml 196 ml -602 ml Justicifation of Admission Dx: Justifications for Admission: Justification of Admission Dx: N/A DOMINICK TORRES MD December 19, 2021 12:43
[2021-12-19] MEDS: FAMOTIDINE 20 MG/2 ML VIAL IVP SCH (20:35)
[2021-12-20] VITALS: BP 148/86
[2021-12-20 04:00] VITALS: BP 141/88
[2021-12-20] MEDS: IV NORMAL SALINE 1000ML BAG 1,000 ML IV SCH ×3 (05:31→19:00)
[2021-12-20] MEDS: PIPERACILLIN/TAZOBACTAM 4.5 GM in IV DEXTROSE 5% 100ML 100 ML IV SCH ×3 (05:31→17:22)
[2021-12-20 08:00] VITALS: BP 150/78
[2021-12-20] MEDS: ACETAMINOPHEN 650 MG/20.3 ML SOLUTION. PEG PRN ×2 (08:20→17:32)
--- NOTE | 2021-12-20 09:05 | PDOC ---
PULMONARY PROGRESS NOTES DATE: 12/20/21 TIME: 09:05 Subjective Patient not more short of air Had a fever this morning No productive cough Extubated 12/18 Vitals Vital Signs Date Time Temp Pulse Resp B/P (MAP) Pulse Ox O2 Delivery O2 Flow Rate FiO2 12/20/21 09:00 Room Air 12/20/21 08:00 102.4 88 26 150/78 (102) 91 102.4 ROS: No Nausea, No Chest Pain, No Abdominal Pain, No Increase Cough General: Alert Lungs: Clear, Other (Has a cough) Cardiovascular: S1 Abdomen: Soft Neuro Exam: Alert Extremities: No Edema Skin: Warm Medications Active Scripts Medications Dose Route/Sig Max Daily Dose Days Date Category Hydrocodone-Apap 5-325 (Hydrocodone Bit/Acetaminophen) 1 Tab Tablet 1 Tab PO PRN Q6HRS PRN 01/25/21 Rx Ibuprofen 600 Mg Tablet 600 Mg PO PRN Q6HRS PRN 01/25/21 Rx Comments Chest x-ray reviewed 12/16/2021. Improving right basal infiltrate and slightly increased left basal infiltrate. Impression . 1. Acute hypoxic respiratory failure secondary to toxic encephalopathy 2. Acute toxic encephalopathy. Urine drug screen positive for meth. 3. Abnormal chest x-ray with right lung infiltrate along with fever. Suspect aspiration pneumonitis. 4. Fever, may be secondary to central mechanism, withdrawal. Autonomic instability Plan . Updated 12/20 repeat chest x-ray Respiratory status compensated Continue antibiotics, for now Speech eval One-to-one needed, patient at times trying to get out of bed. SANDY RUGGIERO MD December 20, 2021 09:05
--- NOTE | 2021-12-20 10:09 | PDOC ---
PROGRESS NOTES Date of Service DATE: 12/20/21 TIME: 10:07 Assessment Toxic encephalopathy, drug overdose, no evidence of ongoing seizure activity, intracranial process such as stroke or cerebral edema. Extubated 12/18 Pneumonia, fevers Plan He is on as needed olanzapine No additional neurological studies needed Subjective Does not feel well with fevers Objective Vital Signs Date Time Temp Pulse Resp B/P (MAP) Pulse Ox O2 Delivery O2 Flow Rate FiO2 12/20/21 09:10 101.3 101.3 12/20/21 09:00 Room Air 12/20/21 08:00 88 26 150/78 (102) 91 Intake and Output 12/20/21 07:00 Intake Total 3453 ml Output Total 2535 ml Balance 918 ml Intake Oral 120 ml IV Total 3333 ml Output Urine Total 2535 ml PHYSICAL EXAM Alert, oriented to person, place, time. PERRL. EOMI. CN: no focal findings. Muscle tone: normal. Muscle strength: 4/5 DTR: 1+ Plantar reflex: Flexor Gait: not examined in bed. Sensory exam: no abnormal findings. No cerebellar findings Review of Relevant I have reviewed the following items astish (where applicable) has been applied. Medications Current Medications Fentanyl Citrate 30 ml @ 2.5 mls/hr CONT PRN IV SEE PROTOCOL; Start 12/13/21 at 21:15 Midazolam HCl 100 ml @ 1 mls/hr CONT PRN IV SEE PROTOCOL; Start 12/13/21 at 21:15; Stop 12/15/21 at 11:13; Status DC Propofol 100 ml @ 2.901 mls/ hr CONT PRN IV PER PROTOCOL Last administered on 12/18/21at 05:45; Start 12/13/21 at 21:15 Glycerin/ Hypromellose/ Polyethylene (Artificial Tears) 1 drop PRN Q1HR PRN OU DRY EYE; Start 12/13/21 at 21:15 Dexmedetomidine HCl 400 mcg/ Sodium Chloride 100 ml @ 4.835 mls/ hr CONT PRN IV PER PROTOCOL Last administered on 12/19/21at 09:14; Start 12/13/21 at 21:15 Sodium Chloride 500 ml @ 500 mls/hr 1X PRN PRN IV SEE COMMENTS; Start 12/13/21 at 21:15 Atropine Sulfate (ATROPINE 0.5mg SYRINGE) 0.5 mg PRN Q5MIN PRN IV SEE COMMENTS; Start 12/13/21 at 21:15 Piperacillin Sod/ Tazobactam Sod (Zosyn Per Pharmacy) 1 each PRN DAILY PRN MC SEE COMMENTS; Start 12/14/21 at 09:15 Enoxaparin Sodium (Lovenox 40mg Syringe) 40 mg Q24H SQ Last administered on 12/18/21at 11:11; Start 12/14/21 at 11:00 Famotidine (Pepcid Vial) 20 mg QHS IVP Last administered on 12/19/21at 20:35; Start 12/14/21 at 21:00 Piperacillin Sod/ Tazobactam Sod 3.375 gm/Sodium Chloride 50 ml @ 100 mls/hr 1X ONCE IV Last administered on 12/14/21at 09:37; Start 12/14/21 at 10:00; Stop 12/14/21 at 10:29; Status DC Magnesium Sulfate 100 ml @ 25 mls/hr 1X ONCE IV Last administered on 12/14/21at 10:23; Start 12/14/21 at 10:00; Stop 12/14/21 at 13:59; Status DC Piperacillin Sod/ Tazobactam Sod 4.5 gm/Sodium Chloride 100 ml @ 200 mls/hr Q6HRS IV ; Start 12/14/21 at 18:00; Stop 12/14/21 at 10:22; Status DC Piperacillin Sod/ Tazobactam Sod 4.5 gm/Dextrose 100 ml @ 200 mls/hr Q6HRS IV Last administered on 12/20/21at 05:31; Start 12/14/21 at 18:00 Acetaminophen (Tylenol) 650 mg PRN Q6HRS PRN PEG MILD PAIN / TEMP > 100.3'F [facility] administered on 12/20/21at 08:20; Start 12/14/21 at 17:00 Sodium Chloride 1,000 ml @ 125 mls/hr Q8H IV Last administered on 12/20/21at 05:31; Start 12/15/21 at 11:00 Midazolam HCl (Versed) 5 mg STK-MED ONCE .ROUTE ; Start 12/16/21 at 08:37; Stop 12/16/21 at 08:38; Status DC Midazolam HCl (Versed) 5 mg 1X ONCE IVP ; Start 12/16/21 at 08:45; Stop 12/16/21 at 08:46; Status DC Midazolam HCl (Versed) 5 mg STK-MED ONCE .ROUTE ; Start 12/16/21 at 08:45; Stop 12/17/21 at 08:55; Status DC Olanzapine (ZyPREXA IM) 10 mg PRN Q8HRS PRN IM ANXIETY / AGITATION Last administered on 12/19/21at 12:09; Start 12/18/21 at 15:00 Hydralazine HCl (Apresoline Inj) 10 mg PRN Q4HRS PRN IVP ELEVATED BP, SEE COMMENTS Last administered on 12/19/21at 12:08; Start 12/19/21 at 11:15 Active Scripts Active Hydrocodone-Apap 5-325 (Hydrocodone Bit/Acetaminophen) 1 Tab Tablet 1 Tab PO PRN Q6HRS PRN Ibuprofen 600 Mg Tablet 600 Mg PO PRN Q6HRS PRN Vitals/I & O Vital Sign - Last 24 Hours 12/19/21 12/19/21 12/19/21 12/19/21 11:00 12:00 12:00 12:08 Temp 97.7 97.7 Pulse 68 75 73 Resp 26 24 B/P (MAP) 181/83 164/76 164/76 Pulse Ox 92 95 O2 Delivery Room Air Room Air Room Air 12/19/21 12/19/21 12/19/21 12/19/21 13:00 14:00 15:00 16:00 Pulse 85 92 93 Resp 22 27 29 B/P (MAP) 156/78 126/62 122/57 Pulse Ox 96 93 96 O2 Delivery Room Air Room Air Room Air Room Air 12/19/21 12/19/21 12/19/21 12/19/21 16:00 17:00 20:00 21:00 Temp 99.1 98.4 99.1 98.4 Pulse 95 90 72 Resp 26 21 20 B/P (MAP) 135/70 118/64 112/73 (86) Pulse Ox 94 92 96 O2 Delivery Room Air Room Air Room Air Room Air 12/20/21 12/20/21 12/20/21 12/20/21 00:00 04:00 08:00 09:00 Temp 98.8 100.0 102.4 98.8 100.0 102.4 Pulse 66 62 88 Resp 20 18 26 B/P (MAP) 148/86 (106) 141/88 (105) 150/78 (102) Pulse Ox 95 96 91 O2 Delivery Room Air Room Air Room Air Room Air 12/20/21 09:10 Temp 101.3 101.3 Intake and Output 12/19/21 12/19/21 12/20/21 15:00 23:00 07:00 Intake Total 301 ml 1565 ml 1587 ml Output Total 1435 ml 540 ml 560 ml Balance -1134 ml 1025 ml 1027 ml Justicifation of Admission Dx: Justifications for Admission: Justification of Admission Dx: N/A DOMINICK TORRES MD December 20, 2021 10:08
--- NOTE | 2021-12-20 10:24 | PDOC ---
[facility] PROGRESS NOTE Date of Service DOS: DATE: 12/20/21 TIME: : Chief Complaint Chief Complaint Found down with probable overdose Respiratory failure requiring intubation Forehead hematoma Previous suicide attempt with baclofen and/or Flexeril, methamphetamine abuse. History of Present Illness History of Present Illness 12/20/2021 Patient seen and examined He is off the vent for 48 hours now He is opening his eyes and talking a little bit Still has a harsh cough Discussed with RN He is still spiking fevers to 102.9 this morning O2 sat currently 92% On IV Zosyn Discussed with case management Chart reviewed He still remains quite ill 12/20/2019 Patient seen and examined Discussed with RN Chart reviewed He is currently sedated Discussed with case 12/18/2021 Patient seen and examined He has just been extubated Nodded yes that he could hear me but was unable to talk to me Discussed with RN Discussed with case management Chart reviewed 12/17/2021 Patient seen and examined in the ICU He remains on the vent AC/16/500/40 with 5 of PEEP He has mitts on for his safety Dias to bedside drainage Pupils are 2 mm and symmetrical Has SCDs on IV Zosyn hanging Sedated with propofol and Precedex (we are going to try a sedation vacation this morning again) Discussed with RN Discussed with case management Chart reviewed 12/16/2021 Patient seen and examined in the ICU He remains on the ventilator AC/16/500/50 with 5 of PEEP Discussed with RN Discussed with case management Chart reviewed We tried to wake him up yesterday and this morning but he gets too agitated Pupils 2 mm and symmetrical He remains critically 12/15/2021 Patient seen and examined Discussed with RN (try to wake the patient up this morning but he did not do well he is back on propofol) Pupils are 2 mm minimally reactive Chart reviewed He is still on the vent AC/16/500/50 percent with 5 of PEEP Has mitts on for his safety Has IV Zosyn hanging He remains critically ill Vitals/I&O Vitals/I&O: Vital Signs Date Time Temp Pulse Resp B/P (MAP) Pulse Ox O2 Delivery O2 Flow Rate FiO2 12/20/21 10:10 96 Room Air 12/20/21 09:10 101.3 101.3 12/20/21 08:00 88 26 150/78 (102) I & O 12/19/21 12/19/21 12/20/21 15:00 23:00 07:00 Intake Total 301 ml 1565 ml 1587 ml Output Total 1435 ml 540 ml 560 ml Balance -1134 ml 1025 ml 1027 ml Physical Exam General: Cooperative, mild distress Heart: Regular rate Lungs: Clear, Other (Has a cough) Abdomen: Normal bowel sounds Extremities: No clubbing Skin: No rashes Assessment and Plan Assessmemt and Plan Found down with probable overdose Respiratory failure requiring intubation (now extubated for a couple days) Forehead hematoma Previous suicide attempt with baclofen and/or Flexeril, methamphetamine abuse. Plan Cardiac monitoring As needed sedation PT OT speech therapy Continue Zosyn Appreciate pulmonary input Appreciate neurology input Trend labs Trend chest x-rays Beta agonist DVT prophylaxis Full code Prognosis extremely guarded Appreciate subspecialist input Comment Review of Relevant I have reviewed the following items satish (where applicable) has been applied. Medications: Current Medications Medications (Trade) Dose Ordered Sig/Sumi Route PRN Reason Start Time Stop Time Status Last Admin Dose Admin Hydralazine HCl (Apresoline Inj) 10 mg PRN Q4HRS PRN IVP ELEVATED BP, SEE COMMENTS 12/19/21 11:15 12/19/21 12:08 Justifications for Admission Other Justification ROSA BEAN III DO December 20, 2021 10:24
[2021-12-20 10:42] VITALS: BP 155/79
[2021-12-20] MEDS: ENOXAPARIN 40 MG/0.4 ML SYRINGE. SQ SCH (11:02)
--- NOTE | 2021-12-20 13:19 | RAD ---
EXAM: Chest, single view. HISTORY: Fever. COMPARISON: 12/17/2021 FINDINGS: A frontal view of the chest is obtained. There is stable left lower lobe infiltrate or atel ectasis superimposed on diffuse interstitial prominence. The heart is normal in size. There has been removal of a nasogastric tube and endotracheal tube. IMPRESSION: Stable left lower lobe infiltrate and diffuse interstitial prominence. Electronically signed by: Renetta Dolan MD (12/20/2021 1:17 PM) [id number]
--- NOTE | 2021-12-20 13:24 | NUR ---
Patient evaluated by the PAT team and it has been determined by the PAT team that he is not suicidal and therefore come out of 1:1 observation and suicide precautions and protocol. Will continue to monitor patient closely.
[2021-12-20 14:59] VITALS: BP 134/68
--- NOTE | 2021-12-20 15:03 | NUR ---
Patient walked from bed to bathroom. Patient was a little unstable but only required stand by assistance. Patient more awake today. Patient admits to taking baclofen LEHR STRIPPER. Patient states he struggles with depression and has been diagnosed with depression. However, he also states he has highs and lows. will continue to monitor.
[2021-12-20 20:00] VITALS: BP 156/81
[2021-12-20] MEDS: FAMOTIDINE 20 MG/2 ML VIAL IVP SCH (21:51)
[2021-12-20] MEDS ORDERED: PREGABALIN 75 MG CAPSULE PO SCH (22:45)
--- NOTE | 2021-12-20 23:50 | NUR ---
Pt transferred from ICU to [id number]. Arrived on unit @ [id number] by WC.
[2021-12-21] VITALS: BP 142/81
[2021-12-21] MEDS: PIPERACILLIN/TAZOBACTAM 4.5 GM in IV DEXTROSE 5% 100ML 100 ML IV SCH (00:22)
[2021-12-21] MEDS: IV NORMAL SALINE 1000ML BAG 1,000 ML IV SCH (03:00)
[2021-12-21 04:00] VITALS: BP 139/80
[2021-12-21] MEDS: OLANZapine IM 10 MG VIAL. IM PRN (06:11)
[2021-12-21 08:00] VITALS: BP 145/70
--- NOTE | 2021-12-21 09:25 | NUR ---
PATIENT UP AND AMBULATED TO THE NURSES DESK, INFORMED THIS FIELD SOFTWARE ENGINEER THAT HE NEEDED TO BE DISCHARGED AND THAT HE HAD THINGS HE NEEDED TO DO, THIS FIELD SOFTWARE ENGINEER INFORMED AND ENCOURAGED THE PATIENT TO WAIT AND BE SEEN BY THE DOCTOR BEFORE HE LEAVES THE HOSPITAL, PATIENT AGREED AND RETURNED TO HIS ROOM.
[2021-12-21 09:36] LABS: BASO % 1 % (0-3); EOS % 1 % (0-3); HEMATOCRIT 35.4 % (39.0-53.0); LYMPH # 0.9 x10^3/uL (1.0-4.8); LYMPH % 16 % (24-48); MEAN CORPUSCULAR HEMOGLOBIN 28 pg (25-35); MEAN CORPUSCULAR HGB CONC 34 g/dL (31-37); MEAN CORPUSCULAR VOLUME 83 fL (79-100); MONO # 0.5 x10^3/uL (0.0-1.1); MONO % 9 % (0-9); NEUT % 74 % (31-73); PLATELET COUNT 244 x10^3/uL (140-400); RED BLOOD COUNT 4.25 x10^6/uL (4.30-5.70); WHITE BLOOD COUNT 5.4 x10^3/uL (4.0-11.0)
--- NOTE | 2021-12-21 09:45 | NUR ---
PATIENT SEEN BY DR. AGUAYO AND PLAN DISCUSSED WITH HIM, PATIENT CONTINUES TO INFORM DR. AGUAYO AND THE STAFF INCLUDING THIS MINE MOTOR ENGINEER THAT HE HAD TO LEAVE, PATIENT HAS ALL OF HIS PERSONAL BELONGINGS ON THE BED AT THIS TIME AND IS REFUSING TO STAY, DR. AGUAYO INFORMED THIS MINE MOTOR ENGINEER TO HAVE THE PATIENT SIGN THE AMA FORM. THIS MINE MOTOR ENGINEER ENCOURAGED THE PATIENT TO ALLOW ME TO SET UP TRANSPORT TO HOME AND NURSING FAMILY DAY CARE WORKER NOTIFIED.
[2021-12-21 09:53] LABS: CALCIUM 8.7 mg/dL (8.5-10.1); CREATININE 0.9 mg/dL (0.7-1.3); MAGNESIUM 2.1 mg/dL (1.8-2.4); POTASSIUM 3.1 mmol/L (3.5-5.1)
--- NOTE | 2021-12-21 10:22 | NUR ---
NURSING GREY ROLL MAN AT THE BEDSIDE REQUESTING A ADDRESS FROM THE PATIENT TO SET UP TRANSPORT TO HOME, PATIENT BECAME IRRITATED AEB PILING UP ALL OF HIS BELONGINGS AND SAYING "I DON'T NEED A RIDE, "I'M LEAVING, PATIENT WALKS OUT OF THE ROOM WITH HIS BELONGINGS, THIS BUFFING TURNER AND COUNTER ENCOURAGED THE PATIENT TO SIGN THE AMA FORM AND HE DID, SECURITY CALLED TO MEET THE PATIENT AND STAFF AT THE FRONT ENTRANCE.
--- NOTE | 2021-12-21 10:40 | NUR ---
SECURITY MEETS PATIENT AT THE FRONT ENTRANCE OF THE HOSPITAL AND ALONGSIDE NURSING YARN CLEANER AND THIS VEGETABLE FARM MANAGER, PATIENT AMBULATES OUT OF THE HOSPITAL AT THIS TIME.
[2021-12-21 10:48] LABS: PLT ESTIMATE ADEQUATE (ADEQUATE)
== END 2021-12-21 09:00 | disposition left against medical advice (07) | DRG 917 ==
LOC: 1 WEST ICU 20:25 → 4 NORTH 12-20 23:57
PROVIDERS: ADMIT Family Medicine; ATTEND Family Medicine
PROC: 5A1955Z Respiratory Ventilation, Greater than 96 Consecutive Hours (ICD-10-PCS; principal; 2021-12-13)
PROC: 0BH17EZ Insertion of Endotracheal Airway into Trachea, Via Natural or Artificial Opening (ICD-10-PCS; 2021-12-13)
DX: T42.8X1A Poisoning by antiparkinsonism drugs and other central muscle-tone depressants, accidental (unintentional), initial encounter (principal); J96.01 Acute respiratory failure with hypoxia; G92.9 Unspecified toxic encephalopathy; J18.9 Pneumonia, unspecified organism; T50.901A Poisoning by unspecified drugs, medicaments and biological substances, accidental (unintentional), initial encounter; F17.200 Nicotine dependence, unspecified, uncomplicated; S00.03XA Contusion of scalp, initial encounter; Z82.49 Family history of ischemic heart disease and other diseases of the circulatory system; Z91.51 Personal history of suicidal behavior; F32.A Depression, unspecified; K21.9 Gastro-esophageal reflux disease without esophagitis; F15.10 Other stimulant abuse, uncomplicated
CPT/HCPCS: 36415; 36600; 71045; 74018; 80048; 80053; 80061; 80307; 81001; 82550; 82805; 83735; 84100; 85025; 85027; 94002; 94003; 94760; J0360; J1650; J2250; J2543; J2704; J3475; J3490; J7030; J7060; G0378